=== PATIENT | female | born 1940 | race Caucasian/White ===

== ENCOUNTER 2017-03-23 17:01 | Inpatient (IN) | payer MEDICARE, MEDICAID ==
[~2017-03-23] VITALS: Ht 152.4 cm; Wt 69.8 kg
[~2017-03-23 17:01] MED LIST: AMLO5 PO; ATOR40TA49 PO; BP MED; Levothyroxine Sodium PO; METO50TA PO; WARF6 PO; [UNRECOGNIZED DRUG - OTHER] XX
[2017-03-23 17:10] VITALS: PULSE 113; RESP 16; TEMP 98.7; O2SAT 98
--- NOTE | 2017-03-23 17:15 | PD ---
HPI Chief Complaint: Abnormal Results Time Seen by Provider: 17:15 Travel History International Travel<30 days: No Contact w/Intl Traveler<30days: No Traveled to known affect area: No History of Present Illness HPI 76-year-old female with history of hypertension, CAD, CVA, hypothyroidism, presents to the emergency department from [facility] for evaluation of altered mental status and a hemoglobin of 5.2 identified on lab work from March. Patient's mentation has been declining over the last 3-4 days per [facility] report from Center staff. The patient is a poor historian. She answers no when asked about pain. Tells me that she "feels fine." In review of the records, it appears that the patient has been seen by Dr. Diallo. She has been having heme positive stools. There has been no report of hematemesis or coffee-ground emesis. There is no report of fever or chills. A review of the patient's paperwork that accompanies her, the patient was on Coumadin at one point and suffered Coumadin toxicity in early February. She was on hospice care as of February 21, 2017. I am unable to determine what hospice per this documentation I am provided however on a paper dated March 05, 2017, the patient has opted to not complete advanced directives. PFSH Past Medical History Cancer: No Cardiovascular Problems: Yes High Cholesterol: Yes Cerebrovascular Accident: Yes Diminished Hearing: No Endocrine: Yes GERD: Yes Genitourinary: No Immune Disorder: No Musculoskeletal: Yes Neurologic: Yes Psychiatric: No Reproductive: No Respiratory: No Thyroid Disease: Yes Menopausal: Yes Social History Alcohol Use: No Tobacco Use: No Substance Use: No Allergies-Medications (Allergen,Severity, Reaction): Coded Allergies: No Known Allergies (Unverified , 08/17/14) Reported Meds & Prescriptions Reported Meds & Active Scripts Active Reported Vitamin D3 (Cholecalciferol) 1,000 Unit Tab 1,000 Units PO DAILY Synthroid (Levothyroxine Sodium) 75 Mcg Tab 75 Mcg PO DAILY Ranitidine (Ranitidine HCl) 300 Mg Tab 300 Mg PO HS Milk of Magnesia Liq (Magnesium Hydroxide) 400 Mg/5 Ml Susp 30 Ml PO DAILY PRN Alum-Mag Hydroxide-Simeth Liq (Mag Hydrox/Aluminum Hyd/Simeth) 360 Ml Oral.susp 30 Ml PO Q4HR PRN Ferrous Sulfate DR (Ferrous Sulfate) 325 Mg Tabdr 325 Mg PO BID Docusate Sodium 100 Mg Cap 100 Mg PO BID Ativan (Lorazepam) 0.5 Mg Tab 0.5 Mg PO Q8H PRN Mapap (Acetaminophen) 325 Mg Tab 650 Mg PO Q4HR PRN Review of Systems ROS Limitations: Altered Mental Status Except as stated in HPI: all other systems reviewed are Neg Physical Exam Exam Limitations: Altered Mental Status Narrative GENERAL: Well-nourished elderly female patient, lying in bed, in no acute distress. Patient is lying on her left side in a position but is able to fully extend her extremities and lie on her back. She follows simple commands. She responds with confusion or simple yes no answers. SKIN: Focused skin assessment warm/dry. HEAD: Atraumatic. Normocephalic. EYES: Pupils equal and round. No scleral icterus. No injection or drainage. ENT: No nasal bleeding or discharge. Mucous membranes pink and moist. NECK: Trachea midline. No JVD. CARDIOVASCULAR: Regular rate and rhythm. No murmur appreciated. RESPIRATORY: No accessory muscle use. Diminished likely due to poor inspiratory effort.. Breath sounds equal bilaterally. GASTROINTESTINAL: Abdomen soft, non-tender, nondistended. No rebound tenderness. No guarding. Hepatic and splenic margins not palpable. RECTAL EXAM: External hemorrhoids. No tenderness to palpation. Stool is black. Hemoccult-positive. MUSCULOSKELETAL: No obvious deformities. No clubbing. No cyanosis. No edema. NEUROLOGICAL: Awake and confused.. No obvious cranial nerve deficits. Motor grossly within normal limits. Clear speech. Data Data Last Documented VS Vital Signs Date Time Temp Pulse Resp B/P Pulse Ox O2 Delivery O2 Flow Rate FiO2 03/23/17 17:39 112 16 123/81 100 03/23/17 17:39 Room Air 03/23/17 17:10 98.7 Orders Complete Blood Count With Diff (03/23/17 17:29) Comprehensive Metabolic Panel (03/23/17 17:29) Prothrombin Time / Inr (Pt) (03/23/17 17:29) Act Partial Throm Time (Ptt) (03/23/17 17:29) Urinalysis - C+S If Indicated (03/23/17 17:29) Abdomen, Kub Only (03/23/17 17:29) Ecg Monitoring (03/23/17 17:29) Iv Access Insert/Monitor (03/23/17 17:29) Oximetry (03/23/17 17:29) Pantoprazole Inj (Protonix Inj) (03/23/17 17:30) Sodium Chlor 0.9% 1000 Ml Inj (Ns 1000 M (03/23/17 17:29) Sodium Chloride 0.9% Flush (Ns Flush) (03/23/17 17:30) Ct Brain W/O Iv Contrast(Rout) (03/23/17 ) Red Blood Cells (Rbc) (03/23/17 18:18) Blood Product Administration .UPON TRANSFUSION (03/23/17 18:18) Sodium Chlor 0.9% 250 Ml Inj (Ns 250 Ml (03/23/17 18:30) Red Blood Cells (Rbc) (03/23/17 14:45) Type And Screen (03/23/17 14:45) Admit Order (Ed Use Only) (03/23/17 19:48) Labs Laboratory Tests Test 03/23/17 03/23/17 03/23/17 14:45 17:30 18:18 Blood Type A POSITIVE Antibody Screen NEGATIVE Crossmatch Leukocyte-Reduced Leukocyte-Reduced Red Blood Red Blood Cells Cells Blood Bank Comment White Blood Count 5.1 TH/MM3 Red Blood Count 1.81 MIL/MM3 Hemoglobin 6.0 GM/DL Hematocrit 18.9 % Mean Corpuscular Volume 104.5 FL Mean Corpuscular Hemoglobin 33.0 PG Mean Corpuscular Hemoglobin 31.6 % Concent Red Cell Distribution Width 25.8 % Platelet Count 150 TH/MM3 Mean Platelet Volume 9.7 FL Neutrophils (%) (Auto) 71.4 % Lymphocytes (%) (Auto) 20.5 % Monocytes (%) (Auto) 7.2 % Eosinophils (%) (Auto) 0.1 % Basophils (%) (Auto) 0.8 % Neutrophils # (Auto) 3.6 TH/MM3 Lymphocytes # (Auto) 1.0 TH/MM3 Monocytes # (Auto) 0.4 TH/MM3 Eosinophils # (Auto) 0.0 TH/MM3 Basophils # (Auto) 0.0 TH/MM3 CBC Comment AUTO DIFF Differential Comment AUTO DIFF CONFIRMED Platelet Estimate NORMAL Platelet Morphology Comment NORMAL Tear Drop Cells 1+ Ovalocytes 1+ Prothrombin Time 11.4 SEC Prothromb Time International 1.0 RATIO Ratio Activated Partial 22.6 SEC Thromboplast Time Sodium Level 138 MEQ/L Potassium Level 4.4 MEQ/L Chloride Level 109 MEQ/L Carbon Dioxide Level 19.2 MEQ/L Anion Gap 10 MEQ/L Blood Urea Nitrogen 43 MG/DL Creatinine 3.44 MG/DL Estimat Glomerular Filtration 13 ML/MIN Rate Random Glucose 106 MG/DL Calcium Level 8.5 MG/DL Total Bilirubin 0.3 MG/DL Aspartate Amino Transf 64 U/L (AST/SGOT) Alanine Aminotransferase 42 U/L (ALT/SGPT) Alkaline Phosphatase 106 U/L Total Protein 6.2 GM/DL Albumin 2.9 GM/DL MDM Medical Decision Making Medical Screen Exam Complete: Yes Emergency Medical Condition: Yes Medical Record Reviewed: Yes Differential Diagnosis Electrolytic abnormality versus UTI versus traumatic anemia versus GI bleed upper versus lower versus sepsis Narrative Course 76-year-old female presents to emergency department for evaluation of low hemoglobin as well as altered mental status. Patient is awake and alert but pleasantly confused. She is unable to answer any details regarding her history but does answer simple yes and no questions. She follows commands. Stool is black tarry and heme positive. Abdominal exam is benign. CBC is without leukocytosis. Hemoglobin is 6.0 with hematocrit of 18.9. Patient is typed and crossed and 2 units of packed red blood cells was ordered. CMP is with a BUN of 43 and creatinine of 3.4 for this is acute elevation compared to our recent lab work however this is from 2013 that I can compare it to. INR is 1.0. CT imaging of the brain was ordered however at this time it was unable to be done due to patient's not holding still for exam. I am informed that the patient was found on the floor. She went in to assess and move her back to the bed with nursing staff. IV was removed by patient. She appears to have no obvious trauma. She answers no to pain. She does not react painfully as I palpate over her extremities and trunk. I received a call to Dr. Montes De Oca. I invited him the limited history regarding the patient that I had. Patient will be admitted to the [facility] under his name. Diagnosis Primary Impression: Altered mental status, unspecified Additional Impressions: Anemia Qualified Code: D64.9 - Anemia, unspecified type GI bleed Qualified Code: K92.2 - Gastrointestinal hemorrhage, unspecified gastrointestinal hemorrhage type ARF (acute renal failure) Qualified Code: N17.9 - Acute renal failure, unspecified acute renal failure type Admitting Information Admitting Physician Requests: Admit Condition: Stable Adalgisa Baca Mar 23, 2017 17:15
[2017-03-23] MEDS ORDERED: SODIUM CHLOR 0.9% 1000 ML INJ 1,000 ML IV SCH (17:29)
[2017-03-23] MEDS ORDERED: SODIUM CHLORIDE 0.9% FLUSH 10 ML FLUSH IVF PRN (17:30)
[2017-03-23] MEDS ORDERED: PANTOPRAZOLE SODIUM 40 MG VIAL IVP ONE (17:30)
[2017-03-23 17:39] VITALS: BP 123/81; PULSE 112; RESP 16; O2SAT 100
[2017-03-23 17:59] LABS: AUTOMATED NEUTROPHIL # 3.6 TH/MM3 (1.8-7.7); BASOPHIL % 0.8 % (0.0-2.0); EOSINOPHIL % 0.1 % (0.0-4.0); LYMPH % 20.5 % (9.0-44.0); MEAN CELL VOLUME 104.5 FL (80.0-100.0); MEAN CORPUSCULAR HGB CONC 31.6 % (32.0-36.0); MONO % 7.2 % (0.0-8.0); NEUT % 71.4 % (16.0-70.0); PLATELET COUNT 150 TH/MM3 (150-450); RED BLOOD COUNT 1.81 MIL/MM3 (4.00-5.30); RED CELL DISTRIBUTION WIDTH 25.8 % (11.6-17.2); WHITE BLOOD COUNT 5.1 TH/MM3 (4.0-11.0)
[2017-03-23 18:03] LABS: HEMO FLAGS AUTO DIFF
--- NOTE | 2017-03-23 18:04 | RADRPT ---
EXAM DATE/TIME: 03/23/2017 17:52 [facility] COMPARISON: No previous studies available for comparison. INDICATIONS : Anemia. MEDICAL HISTORY : Stroke. SURGICAL HISTORY : None. ENCOUNTER: Initial ACUITY: 1 day PAIN SCORE: 8/10 LOCATION: Bilateral upper quadrant FINDINGS: Supine view of the abdomen was performed. The abdominal bowel gas pattern is normal. No abnormal ma sses, calcifications, or organomegaly is seen. Visualized osseous structures are osteopenic. There are degenerative changes noted of the lumbar spin e. Previous kyphoplasty of T12. There is moderate severity age-indeterminate compression fracture of L4. CONCLUSION: 1. Benign-appearing abdomen. 2. Osteopenia of the visualized osseous structures. Age-indeterminate compression fracture of L4. Pre vious kyphoplasty of T12. Rayshawn Barksdale MD on March 23, 2017 at 18:01 Board Certified Radiologist. This report was verified electronically.
[2017-03-23 18:11] LABS: HEMATOCRIT 18.9 % (35.0-46.0)
[2017-03-23 18:15] LABS: ALT (GPT) 42 U/L (10-53); ANION GAP 10 MEQ/L (5-15); AST (GOT) 64 U/L (15-37); BICARBONATE 19.2 MEQ/L (21.0-32.0); BLOOD UREA NITROGEN 43 MG/DL (7-18); CHLORIDE 109 MEQ/L (98-107); GLOMERULAR FILTRATION RATE 13 ML/MIN (>89); POTASSIUM 4.4 MEQ/L (3.5-5.1); SODIUM (NA) 138 MEQ/L (136-145)
[2017-03-23 18:17] LABS: ALKALINE PHOSPHATASE 106 U/L (45-117); TOTAL BILIRUBIN ADULT 0.3 MG/DL (0.2-1.0)
[2017-03-23 18:18] LABS: APTT (PATIENT) 22.6 SEC (24.3-30.1); PROTHROMBIN TIME - PATIENT 11.4 SEC (9.8-11.6)
[2017-03-23] MEDS ORDERED: SODIUM CHLOR 0.9% 250 ML INJ 250 ML IV ONE (18:30)
[2017-03-23 18:52] LABS: OVALOCYTES 1+ (NORMAL); PLATELET ESTIMATE SMEAR NORMAL (NORMAL); PLATELET MORPHOLOGY NORMAL (NORMAL); SCAN/DIFF AUTO DIFF CONFIRMED; TEARDROP RBCS 1+ (NORMAL)
[2017-03-23] MEDS ORDERED: VITA100018 PO (19:18)
[2017-03-23] MEDS ORDERED: ALUMSUS3 PO (19:18)
[2017-03-23] MEDS ORDERED: LORA-392 PO (19:18)
[2017-03-23] MEDS ORDERED: FERR325T2 PO (19:18)
[2017-03-23] MEDS ORDERED: RANI300T PO (19:18)
[2017-03-23] MEDS ORDERED: LEVO.075 PO (19:18)
[2017-03-23] MEDS ORDERED: MAPA325T PO (19:18)
[2017-03-23] MEDS ORDERED: DOCU100C PO (19:18)
[2017-03-23] MEDS ORDERED: MILKSUS PO (19:18)
[2017-03-23] MEDS ORDERED: NALOXONE HCL 0.4 MG/ML AMP IV PRN (20:00)
[2017-03-23] MEDS ORDERED: ACETAMINOPHEN 325 MG TAB PO PRN (20:00)
[2017-03-23] MEDS ORDERED: MAGNESIUM HYDROXIDE SUSP 30 ML CUP PO PRN (20:00)
[2017-03-23] MEDS ORDERED: ONDANSETRON HCL 4 MG/2 ML VIAL IVP PRN (20:00)
[2017-03-23] MEDS: FERROUS SULFATE 325 MG (65 MG ELEMENTAL IRON) TAB PO SCH (20:15)
[2017-03-23 20:18] VITALS: BP 118/58; PULSE 112; RESP 20; O2SAT 96
--- NOTE | 2017-03-23 20:49 | RADRPT ---
EXAM DATE/TIME: 03/23/2017 20:06 [facility] COMPARISON: No previous studies available for comparison. INDICATIONS : Fall and altered mental status. MEDICAL HISTORY : unobtainable SURGICAL HISTORY : unobtainable ENCOUNTER: Initial ACUITY: 1 day PAIN SCORE: Non-responsive. LOCATION: Bilateral upper chest FINDINGS: A single view of the chest demonstrates the lungs to be symmetrically aerated without evidence of mas s, infiltrate or effusion. The cardiomediastinal contours are unremarkable. Osseous structures are intact. CONCLUSION: No evidence of acute cardiopulmonary disease. Rayshawn Barksdale MD on March 23, 2017 at 20:46 Board Certified Radiologist. This report was verified electronically.
[2017-03-23] MEDS: DOCUSATE SODIUM 100 MG CAP PO SCH (21:00)
[2017-03-23] MEDS: SODIUM CHLORIDE 0.9% FLUSH 10 ML FLUSH IV FLUSH SCH (21:00)
[2017-03-23 21:30] LABS: FREE T4 1.56 NG/DL (0.76-1.46)
[2017-03-23 22:06] VITALS: BP 101/56; PULSE 76; RESP 17; TEMP 97.4; O2SAT 96
[2017-03-23 22:50] VITALS: PULSE 108
[2017-03-23] MEDS: LORazepam 0.5 MG TAB PO PRN (23:26)
[2017-03-24] VITALS: BP 128/65; PULSE 100; RESP 17; TEMP 96.9; O2SAT 95
[2017-03-24 05:00] VITALS: BP 120/60; PULSE 92; RESP 16; TEMP 97.8; O2SAT 94
[2017-03-24] MEDS: FERROUS SULFATE 325 MG (65 MG ELEMENTAL IRON) TAB PO SCH ×2 (05:25→16:06)
[2017-03-24] MEDS: LEVOTHYROXINE SODIUM 75 MCG TAB PO SCH (05:25)
[2017-03-24 08:00] VITALS: BP 144/66; PULSE 105; RESP 17; TEMP 97.3; O2SAT 95
[2017-03-24] MEDS: LORazepam 0.5 MG TAB PO PRN (08:52)
[2017-03-24] MEDS: DOCUSATE SODIUM 100 MG CAP PO SCH ×2 (08:52→20:30)
[2017-03-24] MEDS: PANTOPRAZOLE SODIUM 40 MG VIAL IV PUSH SCH (08:52)
[2017-03-24] MEDS: SODIUM CHLORIDE 0.9% FLUSH 10 ML FLUSH IV FLUSH SCH ×2 (08:53→20:30)
--- NOTE | 2017-03-24 10:29 | HHI.HP ---
HPI Service [facility] Hospitalists Primary Care Physician Unknown Admission Diagnosis AMS; GI BLEED; ANEMIA Chief Complaint: AMS Travel History International Travel<30 Days: No Contact w/Intl Traveler <30 Da: No Traveled to Known Affected Are: No History of Present Illness Ms. Ariza is a 76 y/o WF with hypertension, hx of CVA, and hypothyroidism who presented to the ED at [facility] on 03/23/17 from her local [facility], for evaluation of altered mental status and anemia. Pt had outpt labs on 03/20/17 which noted a hemoglobin of 5.2. The pt is unable to provide any meaningful information at the time of examination so the history was taken from the ED notes and outpt records. Per the ED notes, the patient's mentation has been declining over the last 3-4 days per the Center staff. In review of the records , the pt was recently admitted to [facility] from 02/20/17 to 03/02/17 for AMS, acute renal failure, Coumadin toxicity and anemia. She was reportedly having hematuria at that time which resolved once her INR improved. She was found to have an E. coli UTI which was treated with Rocephin and then oral Cipro. Pt was initiated on FeSO4 for her anemia. It was also noted that the pts mentation improved with correction of her acute renal failure. The pt was also reportedly on Hospice for a few days prior to that admission but this was revoked at the time of that admission to . On 03/20/17 the patient has been seen by Dr. Diallo and according to the outpt notes the pt had been having intermittent N/ V but no reported hematemesis or coffee-ground emesis. Pt was also noted to be Hemoccult positive. She was planned to undergo evaluation with EGD/colonoscopy and was ordered for a blood transfusion. Per nursing staff the pt has had smears of black tarry stool in her diapers every time she gets changed but no obvious red blood noted. I do not had a record of her discharge medications from that recent hospitalization but it appears that she has been taken off the Coumadin as this was not on her admission Med Rec and not listed in outpt medication list in [facility] EHR. Pts not clear if the pt has baseline dementia or not based on outpt records. 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 Past Surgical History T12 Kyphoplasty Reported Medications -Vitamin D3 1,000 Units PO DAILY -Synthroid 75 Mcg PO DAILY ?88 Mcg DAILY -Ranitidine 300 Mg PO HS -Milk of Magnesia Liq 30 Ml PO DAILY PRN -Alum-Mag Hydroxide-Simeth Liq 30 Ml PO Q4HR PRN -Ferrous Sulfate DR 325 Mg PO BID -Docusate Sodium 100 Mg PO BID -Acetaminophen 650 Mg PO Q4HR PRN ?Norvasc 5 Mg PO DAILY ?Atorvastatin 40 Mg PO HS ?Metoprolol 50 Mg PO HS ?Omeprazole 20 Mg PO DAILY ??Ativan 0.5 Mg PO Q8H PRN Allergies: Coded Allergies: No Known Allergies (Unverified , 08/17/14) Family History Father with hx of CVA Mother with hx of cancer Social History No reported alcohol, tobacco or illicit drug use Pt is a Physical Exam Vital Signs Vital Signs Date Time Temp Pulse Resp B/P Pulse Ox O2 Delivery O2 Flow Rate FiO2 03/24/17 08:00 97.3 105 17 144/66 95 03/24/17 05:00 97.8 92 16 120/60 94 03/24/17 00:00 96.9 100 17 128/65 95 03/23/17 22:50 108 03/23/17 22:06 97.4 76 17 101/56 96 03/23/17 20:18 112 20 118/58 96 Room Air 03/23/17 17:39 112 16 123/81 100 03/23/17 17:39 100 Room Air 03/23/17 17:10 98.7 113 16 98 Physical Exam GENERAL: This is a well-nourished, well-developed patient, in no apparent distress. HEENT: Atraumatic. Normocephalic. No temporal or scalp tenderness. No scleral icterus. Airway patent. NECK: Trachea midline, supple, nontender. CARDIO: Regular. RESP: CTA bilaterally. No wheezes, rales, or rhonchi. ABD: +BS, soft, non-tender, nondistended. EXT: Extremities without clubbing, cyanosis, or edema. NEURO: Awake and confused, follows some commands. Cannot answer questions appropriately. Normal speech. Laboratory Laboratory Tests Test 03/23/17 03/23/17 03/23/17 14:45 17:30 18:18 Blood Type A POSITIVE Antibody Screen NEGATIVE Crossmatch Leukocyte-Reduced Leukocyte-Reduced Red Blood Red Blood Cells Cells Blood Bank Comment White Blood Count 5.1 Red Blood Count 1.81 Hemoglobin 6.0 Hematocrit 18.9 Mean Corpuscular Volume 104.5 Mean Corpuscular Hemoglobin 33.0 Mean Corpuscular Hemoglobin 31.6 Concent Red Cell Distribution Width 25.8 Platelet Count 150 Mean Platelet Volume 9.7 Neutrophils (%) (Auto) 71.4 Lymphocytes (%) (Auto) 20.5 Monocytes (%) (Auto) 7.2 Eosinophils (%) (Auto) 0.1 Basophils (%) (Auto) 0.8 Neutrophils # (Auto) 3.6 Lymphocytes # (Auto) 1.0 Monocytes # (Auto) 0.4 Eosinophils # (Auto) 0.0 Basophils # (Auto) 0.0 CBC Comment AUTO DIFF Differential Comment AUTO DIFF CONFIRMED Platelet Estimate NORMAL Platelet Morphology Comment NORMAL Tear Drop Cells 1+ Ovalocytes 1+ Prothrombin Time 11.4 Prothromb Time International 1.0 Ratio Activated Partial 22.6 Thromboplast Time Sodium Level 138 Potassium Level 4.4 Chloride Level 109 Carbon Dioxide Level 19.2 Anion Gap 10 Blood Urea Nitrogen 43 Creatinine 3.44 Estimat Glomerular Filtration 13 Rate Random Glucose 106 Calcium Level 8.5 Total Bilirubin 0.3 Aspartate Amino Transf 64 (AST/SGOT) Alanine Aminotransferase 42 (ALT/SGPT) Alkaline Phosphatase 106 Total Protein 6.2 Albumin 2.9 Vitamin B12 Level 734 Folate 7.5 Free Thyroxine 1.56 Thyroid Stimulating Hormone 10.300 3rd Gen Result Diagram: 03/23/17 1730 03/23/17 173 Imaging Last Impressions Chest X-Ray 03/23/17 1948 Signed Impressions: Service Date/Time: Thursday, March 23, 2017 20:06 - CONCLUSION: No evidence of acute cardiopulmonary disease. Rayshawn Barksdale MD Abdomen X-Ray 03/23/179 Signed Impressions: Service Date/Time: Thursday, March 23, 2017 17:52 - CONCLUSION: 1. Benign-appearing abdomen. 2. Osteopenia of the visualized osseous structures. Age-indeterminate compression fracture of L4. Previous kyphoplasty of T12. Rayshawn Barksdale MD Septic Shock Reassessment Heart: Regular rate and rhythm Lungs: Clear Skin: Warm Assessment and Plan Problem List: (1) Altered mental status, unspecified Status: Acute Plan: - Pt is a 76 y/o with hypertension, hx of CVA, and hypothyroidism who presented to the ED at [facility] on 03/23/17 for evaluation of altered mental status and anemia. - Pt had outpt labs on 03/20/17 which noted a hemoglobin of 5.2. Pt also noted to be in ARF with Cr 3.44. - Outpt records from 08/2016 pt was noted to have Cr. 1.36 and Hgb 14. - In review of the records, the pt was recently admitted to [facility] from to 03/02/17 for AMS, acute renal failure, Coumadin toxicity and anemia. She was reportedly having hematuria at that time which resolved once her INR improved. She was found to have an E. coli UTI which was treated with Rocephin and then oral Cipro. Pt was initiated on FeSO4 for her anemia. It was also noted that the pts mentation improved with correction of her acute renal failure. - On 03/20/17 the patient has been seen by Dr. Diallo and according to the outpt notes the pt had been having intermittent N/V but no reported hematemesis or coffee-ground emesis. Pt was also noted to be Hemoccult positive. She was planned to undergo evaluation with EGD/colonoscopy and was ordered for a blood transfusion. - Pt has been transfused with 2 units PRBCs - GI is consulted for evaluation of anemia and GIB. - It appears that she has been taken off the Coumadin as this was not on her admission Med Rec and not listed in outpt medication list in [facility] EHR. - Pt was given IVF in the ED, we will give another 2 L of NS today - Pts not clear if the pt has baseline dementia or not based on outpt records. - Head CT w/o contrast is ordered for today, unable logan done last night due to pt being uncooperative. - Await repeat BMP for today to assess renal function status. - Supportive care - DVT prophylaxis with SCDs (2) Anemia Status: Acute Plan: - See above. (3) GI bleed Status: Acute Plan: - See above. (4) ARF (acute renal failure) Status: Acute Plan: - See above. (5) Hypertension Status: Chronic Plan: - Currently BP is stable. - Its unclear what her outpt BP medications are - We will need to review this with her PCP office for confirmation since her recent discharge from [place] - Clonidine PRN (6) Hypothyroidism Status: Chronic Plan: - Labs at admission with TSH 10.3 and free T4 1.56 (7) Hyperlipidemia Status: Chronic Plan: - Cont. home meds (8) CVA (cerebral infarction) Status: Chronic Plan: - Pt with hx of right MCA distribution CVA in 2010 s/p TPA - Pt had been on Coumadin previously Assessment and Plan Patient examined. Assessment and plan formulated with Lucille Washington PA-C. I agree with the above. Physician Certification 2 Midnight Certification Type: Admission for Inpatient Services Order for Inpatient Services The services are ordered in accordance with Medicare regulations or non- Medicare payer requirements, as applicable. In the case of services not specified as inpatient-only, they are appropriately provided as inpatient services in accordance with the 2-midnight benchmark. Estimated LOS (days): 3 3 days is the estimated time the patient will need to remain in the hospital, assuming treatment plan goals are met and no additional complications. Post-Hospital Plan: Not yet determined Problem Qualifiers (1) Anemia: Qualified Code: D64.9 - Anemia, unspecified type (2) GI bleed: Qualified Code: K92.2 - Gastrointestinal hemorrhage, unspecified gastrointestinal hemorrhage type (3) ARF (acute renal failure): Qualified Code: N17.9 - Acute renal failure, unspecified acute renal failure type Lucille Washington Mar 24, 2017 10:29 Jered Montes De Oca DO Mar 25, 2017 22:06
[2017-03-24 11:27] LABS: BASOPHIL % 0.7 % (0.0-2.0); HEMATOCRIT 27.8 % (35.0-46.0); HEMO FLAGS DIFF FINAL; LYMPH % 24.5 % (9.0-44.0); LYMPHOCYTE # 1.4 TH/MM3 (1.0-4.8); MEAN CELL VOLUME 89.1 FL (80.0-100.0); MEAN CORPUSCULAR HEMOGLOBIN 29.9 PG (27.0-34.0); MEAN CORPUSCULAR HGB CONC 33.6 % (32.0-36.0); MONO % 6.4 % (0.0-8.0); NEUT % 68.4 % (16.0-70.0); PLATELET COUNT 101 TH/MM3 (150-450); RED BLOOD COUNT 3.12 MIL/MM3 (4.00-5.30); RED CELL DISTRIBUTION WIDTH 21.8 % (11.6-17.2); WHITE BLOOD COUNT 5.9 TH/MM3 (4.0-11.0)
[2017-03-24 11:54] LABS: BICARBONATE 19.2 MEQ/L (21.0-32.0); POTASSIUM 4.3 MEQ/L (3.5-5.1)
[2017-03-24 12:00] VITALS: BP 99/50; PULSE 93; RESP 17; TEMP 96.8; O2SAT 97
--- NOTE | 2017-03-24 12:35 | RADRPT ---
EXAM DATE/TIME: 03/23/2017 21:13 [facility] COMPARISON: MRI BRAIN W & W/O CONTRAST, August 18, 2014, 14:33. CTA CAROTID ARTERIES W 3D RECON, August 18 014, 18:34. INDICATIONS : Altered mental status. RADIATION DOSE: 36.52 CTDIvol (mGy) MEDICAL HISTORY : Stroke. Hypertension. Gastroesophageal reflux disease. SURGICAL HISTORY : None. ENCOUNTER: Initial ACUITY: 1 day PAIN SCALE: 0/10 LOCATION: Bilateral head TECHNIQUE: Multiple contiguous axial images were obtained of the head. Using automated exposure control and adj ustment of the mA and/or kV according to patient size, radiation dose was kept as low as reasonably a chievable to obtain optimal diagnostic quality images. FINDINGS: The exam demonstrates encephalomalacic infarct involving the watershed distribution between the right frontal and parietal cortex. There is no acute intracranial hemorrhage. The ventricles are normal in size and configuration. No mass lesion is identified. The appearance of the posterior fossa is unremarkable. The osseous structures of the skull are intact. CONCLUSION: 1. Old area of infarct in the watershed distribution between the right frontal and parietal cortex. 2. No acute abnormality seen. Osiel Lacy MD on March 24, 2017 at 12:32 Board Certified Radiologist. This report was verified electronically.
[2017-03-24] MEDS: SODIUM CHLOR 0.9% 1000 ML INJ 1,000 ML IV SCH ×2 (12:37→20:31)
--- NOTE | 2017-03-24 15:12 | PD.CONS ---
HPI History of Present Illness This is a 76 year old lady who per EMR has hx CVA, HTN, sent to ER by her [facility] for AMS, anemia. She had hgb 6.6 on admission. She is noncontributory, hx taken from [facility] [place]. She has been having smears of black stool here and at [facility]. She has been more confused than her baseline in the last 3-4 days. She was treated 02/20 - 03/02/17 for coumadin toxicity and anemia and renal failure, as well as a UTI. She is not currently on coumadin. 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 Past Surgical History khyphoplasty (Stephania Marks) Coded Allergies: No Known Allergies (Unverified , 08/17/14) Family History unk Social History unk (Stephania Marks) Review of Systems ROS noncontributory (Stephania Marks) GI Exam Vitals I&O Vital Signs Date Time Temp Pulse Resp B/P Pulse Ox O2 Delivery O2 Flow Rate FiO2 03/24/17 12:00 96.8 93 17 99/50 97 03/24/17 08:00 97.3 105 17 144/66 95 03/24/17 05:00 97.8 92 16 120/60 94 03/24/17 00:00 96.9 100 17 128/65 95 03/23/17 22:50 108 03/23/17 22:06 97.4 76 17 101/56 96 03/23/17 20:18 112 20 118/58 96 Room Air 03/23/17 17:39 112 16 123/81 100 03/23/17 17:39 100 Room Air 03/23/17 17:10 98.7 113 16 98 I/O 03/23/17 03/23/17 03/23/17 03/24/17 03/24/17 03/24/17 07:00 15:00 23:00 07:00 15:00 23:00 Intake Total 120 ml 790 ml 812 ml Output Total 250 ml Balance 120 ml 540 ml 812 ml Intake Oral 120 ml 120 ml 20 ml IV Total 60 ml 97 ml Packed Cells 610 ml 695 ml Output Urine Total 250 ml # Voids 1 3 5 # Bowel Movements 1 1 5 Imaging Last Impressions Chest X-Ray 03/23/17 1948 Signed Impressions: Service Date/Time: Thursday, March 23, 2017 20:06 - CONCLUSION: No evidence of acute cardiopulmonary disease. Rayshawn Barksdale MD Abdomen X-Ray 03/23/17 1729 Signed Impressions: Service Date/Time: Thursday, March 23, 2017 17:52 - CONCLUSION: 1. Benign-appearing abdomen. 2. Osteopenia of the visualized osseous structures. Age-indeterminate compression fracture of L4. Previous kyphoplasty of T12. Rayshawn Barksdale MD Head CT 03/23/17 0000 Signed Impressions: Service Date/Time: Thursday, March 23, 2017 21:13 - CONCLUSION: 1. Old area of infarct in the watershed distribution between the right frontal and parietal cortex. 2. No acute abnormality seen. Osiel Lacy MD Laboratory Test 03/23/17 03/23/17 03/24/17 17:30 18:18 11:09 White Blood Count 5.1 TH/MM3 5.9 TH/MM3 Red Blood Count 1.81 MIL/MM3 3.12 MIL/MM3 Hemoglobin 6.0 GM/DL 9.3 GM/DL Hematocrit 18.9 % 27.8 % Mean Corpuscular Volume 104.5 FL 89.1 FL Mean Corpuscular Hemoglobin 33.0 PG 29.9 PG Mean Corpuscular Hemoglobin 31.6 % 33.6 % Concent Red Cell Distribution Width 25.8 % 21.8 % Platelet Count 150 TH/MM3 101 TH/MM3 Mean Platelet Volume 9.7 FL 8.7 FL Neutrophils (%) (Auto) 71.4 % 68.4 % Lymphocytes (%) (Auto) 20.5 % 24.5 % Monocytes (%) (Auto) 7.2 % 6.4 % Eosinophils (%) (Auto) 0.1 % 0.0 % Basophils (%) (Auto) 0.8 % 0.7 % Neutrophils # (Auto) 3.6 TH/MM3 4.0 TH/MM3 Lymphocytes # (Auto) 1.0 TH/MM3 1.4 TH/MM3 Monocytes # (Auto) 0.4 TH/MM3 0.4 TH/MM3 Eosinophils # (Auto) 0.0 TH/MM3 0.0 TH/MM3 Basophils # (Auto) 0.0 TH/MM3 0.0 TH/MM3 CBC Comment AUTO DIFF DIFF FINAL Differential Comment AUTO DIFF CONFIRMED Platelet Estimate NORMAL Platelet Morphology Comment NORMAL Tear Drop Cells 1+ Ovalocytes 1+ Prothrombin Time 11.4 SEC Prothromb Time International 1.0 RATIO Ratio Activated Partial 22.6 SEC Thromboplast Time Sodium Level 138 MEQ/L 141 MEQ/L Potassium Level 4.4 MEQ/L 4.3 MEQ/L Chloride Level 109 MEQ/L 111 MEQ/L Carbon Dioxide Level 19.2 MEQ/L 19.2 MEQ/L Anion Gap 10 MEQ/L 11 MEQ/L Blood Urea Nitrogen 43 MG/DL 37 MG/DL Creatinine 3.44 MG/DL 3.27 MG/DL Estimat Glomerular Filtration 13 ML/MIN 14 ML/MIN Rate Random Glucose 106 MG/DL 79 MG/DL Calcium Level 8.5 MG/DL 8.0 MG/DL Total Bilirubin 0.3 MG/DL Aspartate Amino Transf 64 U/L (AST/SGOT) Alanine Aminotransferase 42 U/L (ALT/SGPT) Alkaline Phosphatase 106 U/L Total Protein 6.2 GM/DL Albumin 2.9 GM/DL Vitamin B12 Level 734 PG/ML Folate 7.5 NG/ML Free Thyroxine 1.56 NG/DL Thyroid Stimulating Hormone 10.300 uIU/ML 3rd Gen Crossmatch Leukocyte-Reduced Red Blood Cells Blood Bank Comment Ammonia 27 MCMOL/L Physical Examination HEENT: EOMI; normocephalic; atraumatic; no jaundice. CHEST: CTA CARDIAC: RRR ABDOMEN: Soft, nondistended, nontender; no hepatosplenomegaly; bowel sounds are present in all four quadrants. EXTREMITIES: No clubbing, cyanosis, or edema. SKIN: Normal; no rash; no jaundice. IDEA WORKER: confused (Stephania Marks) Assessment and Plan Plan ASSESSMENT - melena - report of recent hemoccult pos result. Melena per RN, EMR. d/w RN, daughter will give consent - anemia - Hgb 6.0 on admission. Currently 9.3. PLAN - EGD tomorrow - NPO after midnight - clears for now - obtain consents - monitor HH - transfuse if needed - further recommendations to follow This pt seen by myself and Dr Manzano and this note is written on his behalf. ( Stephania Marks) Physician Comments Seen and examined, plan as above, further recommendations to follow after EGD. ( Jory Manzano MD) Stephania Marks Mar 24, 2017 15:12 Jory Manzano MD Mar 24, 2017 17:27
[2017-03-24 16:00] VITALS: BP 140/68; PULSE 106; RESP 16; TEMP 98.6; O2SAT 96
[2017-03-24 20:00] VITALS: BP 119/58; PULSE 100; RESP 16; TEMP 96.9; O2SAT 94
--- NOTE | 2017-03-24 21:48 | EKG ---
Date Performed: 03/23/2017 Time Performed: 20:12:11 PTAGE: 76 years EKG: SINUS TACHYCARDIA WITH OCCASIONAL VENTRICULAR PREMATURE COMPLEXES RIGHT BUNDLE BRANCH BLOCK LEFT ANTERIOR FASCICULAR BLOCK Since previous tracing, no significant change noted ABNORMAL ECG PREVIOUS TRACING : 08/17/2014 17.37 DOCTOR: Priscilla Felton Interpretating Date/Time 03/24/2017 21:47:14
[2017-03-24] MEDS ORDERED: METOPROLOL TARTRATE 25 MG TAB PO PRN (22:30)
[2017-03-24] MEDS ORDERED: CHLORHEXIDINE GLUCONATE 2 % 1 PACK (2 CLOTHS) TOPICAL PRN (22:30)
[2017-03-24] MEDS ORDERED: LACTATED RINGER'S 1000 ML IV PRN (22:30)
[2017-03-24] MEDS ORDERED: SODIUM CHLORID 0.9% 500 ML IV PRN (22:30)
[2017-03-24] MEDS ORDERED: POVIDONE IODINE 5% (ANTISEPSIS KIT) 4 APPLICATIONS EACH NARE PRN (22:30)
[2017-03-24] MEDS ORDERED: INSULIN HUMAN REGULAR 1,000 UNITS/10 ML VIAL SQ PRN (22:30)
[2017-03-25] VITALS (8 sets, daily range): BP systolic 128–151; BP diastolic 67–79; PULSE 84–101; RESP 16–20; TEMP 95.8–98.4; O2SAT 94–99
[2017-03-25] MEDS: LEVOTHYROXINE SODIUM 75 MCG TAB PO SCH (05:55)
[2017-03-25] MEDS: FERROUS SULFATE 325 MG (65 MG ELEMENTAL IRON) TAB PO SCH ×2 (05:55→16:05)
[2017-03-25 06:01] LABS: AUTOMATED NEUTROPHIL # 1.9 TH/MM3 (1.8-7.7); BASOPHIL % 0.6 % (0.0-2.0); EOSINOPHIL % 0.5 % (0.0-4.0); HEMATOCRIT 27.1 % (35.0-46.0); LYMPH % 39.3 % (9.0-44.0); LYMPHOCYTE # 1.5 TH/MM3 (1.0-4.8); MEAN CELL VOLUME 90.6 FL (80.0-100.0); MEAN CORPUSCULAR HEMOGLOBIN 29.5 PG (27.0-34.0); MEAN CORPUSCULAR HGB CONC 32.6 % (32.0-36.0); NEUT % 49.6 % (16.0-70.0); PLATELET COUNT 80 TH/MM3 (150-450); RED BLOOD COUNT 2.99 MIL/MM3 (4.00-5.30); RED CELL DISTRIBUTION WIDTH 24.7 % (11.6-17.2); WHITE BLOOD COUNT 3.9 TH/MM3 (4.0-11.0)
[2017-03-25 06:03] LABS: HEMO FLAGS AUTO DIFF
[2017-03-25 06:21] LABS: BICARBONATE 19.4 MEQ/L (21.0-32.0); POTASSIUM 3.5 MEQ/L (3.5-5.1)
[2017-03-25 07:01] LABS: PLATELET ESTIMATE SMEAR LOW (NORMAL); PLATELET MORPHOLOGY NORMAL (NORMAL); SCAN/DIFF AUTO DIFF CONFIRMED
[2017-03-25] MEDS: SODIUM CHLORIDE 0.9% FLUSH 10 ML FLUSH IV FLUSH SCH ×2 (08:38→22:21)
[2017-03-25] MEDS: DOCUSATE SODIUM 100 MG CAP PO SCH ×2 (08:38→22:21)
[2017-03-25] MEDS: PANTOPRAZOLE SODIUM 40 MG VIAL IV PUSH SCH (08:38)
[2017-03-25] MEDS ORDERED: BISACODYL EC 5 MG TABEC PO ONE (11:15)
--- NOTE | 2017-03-25 14:06 | HHI.PR ---
Subjective Remarks Pt is more alert and oriented today Pt is seen after EGD which noted gastritis. She has been afebrile She denies any abd pain. Pt tolerating clear liquid diet. Objective Vitals Vital Signs Date Time Temp Pulse Resp B/P Pulse Ox O2 Delivery O2 Flow Rate FiO2 03/25/17 12:00 96.1 99 20 130/78 99 03/25/17 11:45 89 18 128/68 100 03/25/17 11:30 95 18 104/65 98 03/25/17 11:14 98.4 80 18 99/65 98 03/25/17 09:29 97.9 87 16 140/72 98 03/25/17 08:00 95.8 87 16 140/72 98 03/25/17 05:01 96.4 84 17 138/69 95 03/25/17 00:00 96.2 94 17 151/67 94 03/24/17 20:00 96.9 100 16 119/58 94 03/24/17 20:00 100 03/24/17 16:00 98.6 106 16 140/68 96 03/24/17 03/24/17 03/25/17 14:59 22:59 06:59 Intake Total 812 ml 280 ml 1642 ml Balance 812 ml 280 ml 1642 ml Intake Oral 20 ml 280 ml 0 ml IV Total 97 ml 1642 ml Packed Cells 695 ml # Voids 5 5 4 # Bowel Movements 5 5 4 Result Diagram: 03/25/17 0528 03/25/17 0528 Other Results Laboratory Tests Test 03/23/17 03/23/17 03/23/17 03/24/17 14:45 17:30 18:18 11:09 Blood Type A POSITIVE Antibody Screen NEGATIVE Crossmatch Leukocyte-Reduced Leukocyte-Reduced Red Blood Red Blood Cells Cells Blood Bank Comment White Blood Count 5.1 TH/MM3 5.9 TH/MM3 Red Blood Count 1.81 MIL/MM3 3.12 MIL/MM3 Hemoglobin 6.0 GM/DL 9.3 GM/DL Hematocrit 18.9 % 27.8 % Mean Corpuscular Volume 104.5 FL 89.1 FL Mean Corpuscular Hemoglobin 33.0 PG 29.9 PG Mean Corpuscular Hemoglobin 31.6 % 33.6 % Concent Red Cell Distribution Width 25.8 % 21.8 % Platelet Count 150 TH/MM3 101 TH/MM3 Mean Platelet Volume 9.7 FL 8.7 FL Neutrophils (%) (Auto) 71.4 % 68.4 % Lymphocytes (%) (Auto) 20.5 % 24.5 % Monocytes (%) (Auto) 7.2 % 6.4 % Eosinophils (%) (Auto) 0.1 % 0.0 % Basophils (%) (Auto) 0.8 % 0.7 % Neutrophils # (Auto) 3.6 TH/MM3 4.0 TH/MM3 Lymphocytes # (Auto) 1.0 TH/MM3 1.4 TH/MM3 Monocytes # (Auto) 0.4 TH/MM3 0.4 TH/MM3 Eosinophils # (Auto) 0.0 TH/MM3 0.0 TH/MM3 Basophils # (Auto) 0.0 TH/MM3 0.0 TH/MM3 CBC Comment AUTO DIFF DIFF FINAL Differential Comment AUTO DIFF CONFIRMED Platelet Estimate NORMAL Platelet Morphology Comment NORMAL Tear Drop Cells 1+ Ovalocytes 1+ Prothrombin Time 11.4 SEC Prothromb Time International 1.0 RATIO Ratio Activated Partial 22.6 SEC Thromboplast Time Sodium Level 138 MEQ/L 141 MEQ/L Potassium Level 4.4 MEQ/L 4.3 MEQ/L Chloride Level 109 MEQ/L 111 MEQ/L Carbon Dioxide Level 19.2 MEQ/L 19.2 MEQ/L Anion Gap 10 MEQ/L 11 MEQ/L Blood Urea Nitrogen 43 MG/DL 37 MG/DL Creatinine 3.44 MG/DL 3.27 MG/DL Estimat Glomerular Filtration 13 ML/MIN 14 ML/MIN Rate Random Glucose 106 MG/DL 79 MG/DL Calcium Level 8.5 MG/DL 8.0 MG/DL Total Bilirubin 0.3 MG/DL Aspartate Amino Transf 64 U/L (AST/SGOT) Alanine Aminotransferase 42 U/L (ALT/SGPT) Alkaline Phosphatase 106 U/L Total Protein 6.2 GM/DL Albumin 2.9 GM/DL Vitamin B12 Level 734 PG/ML Folate 7.5 NG/ML Free Thyroxine 1.56 NG/DL Thyroid Stimulating Hormone 10.300 uIU/ML 3rd Gen Ammonia 27 MCMOL/L Test 03/25/17 05:28 White Blood Count 3.9 TH/MM3 Red Blood Count 2.99 MIL/MM3 Hemoglobin 8.8 GM/DL Hematocrit 27.1 % Mean Corpuscular Volume 90.6 FL Mean Corpuscular Hemoglobin 29.5 PG Mean Corpuscular Hemoglobin 32.6 % Concent Red Cell Distribution Width 24.7 % Platelet Count 80 TH/MM3 Mean Platelet Volume 9.0 FL Neutrophils (%) (Auto) 49.6 % Lymphocytes (%) (Auto) 39.3 % Monocytes (%) (Auto) 10.0 % Eosinophils (%) (Auto) 0.5 % Basophils (%) (Auto) 0.6 % Neutrophils # (Auto) 1.9 TH/MM3 Lymphocytes # (Auto) 1.5 TH/MM3 Monocytes # (Auto) 0.4 TH/MM3 Eosinophils # (Auto) 0.0 TH/MM3 Basophils # (Auto) 0.0 TH/MM3 CBC Comment AUTO DIFF Differential Comment AUTO DIFF CONFIRMED Platelet Estimate LOW Platelet Morphology Comment NORMAL Sodium Level 147 MEQ/L Potassium Level 3.5 MEQ/L Chloride Level 116 MEQ/L Carbon Dioxide Level 19.4 MEQ/L Anion Gap 12 MEQ/L Blood Urea Nitrogen 30 MG/DL Creatinine 2.72 MG/DL Estimat Glomerular Filtration 17 ML/MIN Rate Random Glucose 70 MG/DL Calcium Level 7.6 MG/DL Magnesium Level 2.0 MG/DL Imaging Last Impressions Chest X-Ray 03/23/17 1948 Signed Impressions: Service Date/Time: Thursday, March 23, 2017 20:06 - CONCLUSION: No evidence of acute cardiopulmonary disease. Rayshawn Barksdale MD Abdomen X-Ray 03/23/17 1729 Signed Impressions: Service Date/Time: Thursday, March 23, 2017 17:52 - CONCLUSION: 1. Benign-appearing abdomen. 2. Osteopenia of the visualized osseous structures. Age-indeterminate compression fracture of L4. Previous kyphoplasty of T12. Rayshawn Barksdale MD Head CT 03/23/17 0000 Signed Impressions: Service Date/Time: Thursday, March 23, 2017 21:13 - CONCLUSION: 1. Old area of infarct in the watershed distribution between the right frontal and parietal cortex. 2. No acute abnormality seen. Osiel Lacy MD Objective Remarks General: NAD, Awake and alert, oriented to self and place Chest: CTA Cardiac: Regular Abd: +BS, soft ND/NT Ext: No edema A/P Problem List: (1) Altered mental status, unspecified Status: Acute Plan: - Pt is a 76 y/o with hypertension, hx of CVA, and hypothyroidism who presented to the ED at [facility] on 03/23/17 for evaluation of altered mental status and anemia. - Pt had outpt labs on 03/20/17 which noted a hemoglobin of 5.2. Pt also noted to be in ARF with Cr 3.44. - Outpt records from 08/2016 pt was noted to have Cr. 1.36 and Hgb 14. - In review of the records, the pt was recently admitted to [facility] from to 03/02/17 for AMS, acute renal failure, Coumadin toxicity and anemia. She was reportedly having hematuria at that time which resolved once her INR improved. She was found to have an E. coli UTI which was treated with Rocephin and then oral Cipro. Pt was initiated on FeSO4 for her anemia. It was also noted that the pts mentation improved with correction of her acute renal failure. - On 03/20/17 the patient has been seen by Dr. Diallo and according to the outpt notes the pt had been having intermittent N/V but no reported hematemesis or coffee-ground emesis. Pt was also noted to be Hemoccult positive. She was planned to undergo evaluation with EGD/colonoscopy and was ordered for a blood transfusion. - It appears that she has been taken off the Coumadin as this was not on her admission Med Rec and not listed in outpt medication list in [facility] EHR. - Pt has been transfused with 2 units PRBCs with improvement in H/H to 9.3/27.8 on 03/24/17. Repeat labs today with a decrease in her H/H to 8.8/27.1 - GI is consulted for evaluation of anemia and GIB. - Pt underwent evaluation with EGD on 03/25/17 which noted gastritis - Pt is planned for colonoscopy tomorrow. - Pt was given IVF in the ED, and was given another 2 L of NS on 03/24 with improvement in her mentation and her Cr to 2.72 today. We will give some more fluids today as she will be prepping for the colonoscopy today - Pts not clear if the pt has baseline dementia or not based on outpt records. - Head CT w/o contrast (03/24/17) --> Old area of infarct in the watershed distribution between the right frontal and parietal cortex. No acute abnormality seen. - Repeat BMP for today to assess renal function status. - Supportive care - DVT prophylaxis with SCDs (2) Anemia Status: Acute Plan: - See above. (3) GI bleed Status: Acute Plan: - See above. (4) ARF (acute renal failure) Status: Acute Plan: - See above. (5) Hypertension Status: Chronic Plan: - Currently BP is stable. - Its unclear what her outpt BP medications are - We will need to review this with her PCP office for confirmation since her recent discharge from [place] - Clonidine PRN (6) Hypothyroidism Status: Chronic Plan: - Labs at admission with TSH 10.3 and free T4 1.56 - Home dose of Synthroid 75mcg was resumed at admission - Recheck TSH tomorrow to reassess (7) Hyperlipidemia Status: Chronic Plan: - Cont. home meds (8) CVA (cerebral infarction) Status: Chronic Plan: - Pt with hx of right MCA distribution CVA in 2010 s/p TPA - Pt had been on Coumadin previously Assessment and Plan Patient examined. Assessment and plan formulated with Lucille Washington PA-C. I agree with the above. Pt more alert and interactive today. Hg improved following transfusion 6.0 (6/6) & 8.8 (6/7) Creatinine improving. Colonoscopy tomorrow. Problem Qualifiers (1) Anemia: Qualified Code: D64.9 - Anemia, unspecified type (2) GI bleed: Qualified Code: K92.2 - Gastrointestinal hemorrhage, unspecified gastrointestinal hemorrhage type (3) ARF (acute renal failure): Qualified Code: N17.9 - Acute renal failure, unspecified acute renal failure type Lcuille Washington Mar 25, 2017 14:06 Jered Montes De Oca DO Mar 25, 2017 22:08
[2017-03-25 14:35] LABS: RAPID PLASMA REAGIN SCREEN NON-REACTIVE (NON-REACTVE)
[2017-03-25] MEDS ORDERED: PEG (High)/E-LYTE SOLN 4000 ML BTL PO ONE (16:00)
[2017-03-25] MEDS: 1/2 NS + KCL 20 MEQ INJ 1,000 ML IV SCH (16:05)
[2017-03-25] MEDS ORDERED: PROPOFOL 200 MG/20 ML AMP IV ONE (17:51)
[2017-03-26] VITALS (9 sets, daily range): BP systolic 123–158; BP diastolic 60–81; PULSE 88–100; RESP 17–27; TEMP 96.2–98.3; O2SAT 95–100
[2017-03-26] MEDS: 1/2 NS + KCL 20 MEQ INJ 1,000 ML IV SCH (03:08)
[2017-03-26 05:12] LABS: AUTOMATED NEUTROPHIL # 1.2 TH/MM3 (1.8-7.7); BASOPHIL % 0.5 % (0.0-2.0); HEMATOCRIT 26.1 % (35.0-46.0); LYMPH % 43.7 % (9.0-44.0); LYMPHOCYTE # 1.1 TH/MM3 (1.0-4.8); MEAN CELL VOLUME 90.1 FL (80.0-100.0); MEAN CORPUSCULAR HEMOGLOBIN 29.9 PG (27.0-34.0); MEAN CORPUSCULAR HGB CONC 33.2 % (32.0-36.0); MONO % 9.6 % (0.0-8.0); NEUT % 45.2 % (16.0-70.0); PLATELET COUNT 70 TH/MM3 (150-450); RED CELL DISTRIBUTION WIDTH 24.6 % (11.6-17.2); WHITE BLOOD COUNT 2.6 TH/MM3 (4.0-11.0)
[2017-03-26 05:32] LABS: HEMO FLAGS AUTO DIFF
[2017-03-26 05:42] LABS: BICARBONATE 15.9 MEQ/L (21.0-32.0); MAGNESIUM 1.7 MG/DL (1.5-2.5); POTASSIUM 3.3 MEQ/L (3.5-5.1)
[2017-03-26 05:55] LABS: CALCIUM-PROTEIN CORRECTED 8.6 MG/DL (8.5-10.1)
[2017-03-26] MEDS: LEVOTHYROXINE SODIUM 75 MCG TAB PO SCH (06:39)
[2017-03-26] MEDS: FERROUS SULFATE 325 MG (65 MG ELEMENTAL IRON) TAB PO SCH ×2 (06:39→14:31)
[2017-03-26 07:35] LABS: BANDS 2 % (0-6); CORRECTED NUCLEATED RBC 1 /100 WBC (0-0); METAMYELOCYTES 1 % (0-1); MYELOCYTES 1 % (0-0); NEUTROPHIL # MANUAL DIFF 1.8 TH/MM3 (1.8-7.7); POLYS (SEG NEUTROPHILS) 67 % (16-70); WBC DIFF SAMPLE 100
[2017-03-26 07:36] LABS: ACANTHOCYTES OCC (NORMAL); OVALOCYTES 1+ (NORMAL); PLATELET ESTIMATE SMEAR LOW (NORMAL); PLATELET MORPHOLOGY NORMAL (NORMAL); SCAN/DIFF FINAL DIFF MANUAL
[2017-03-26] MEDS: DOCUSATE SODIUM 100 MG CAP PO SCH ×2 (08:31→21:00)
[2017-03-26] MEDS: SODIUM CHLORIDE 0.9% FLUSH 10 ML FLUSH IV FLUSH SCH ×2 (08:31→21:00)
[2017-03-26] MEDS: PANTOPRAZOLE SODIUM 40 MG VIAL IV PUSH SCH (08:31)
[2017-03-26] MEDS: LORazepam 0.5 MG TAB PO PRN (10:59)
[2017-03-26] MEDS ORDERED: POTASSIUM CHLORIDE 10 MEQ CONTROLLED RELEASE TAB PO ONE (13:30)
--- NOTE | 2017-03-26 13:56 | HHI.PR ---
Subjective Remarks Pt did not drink the prep for the colonoscopy last night. She is very anxious today Denies any abd pain Objective Vitals Vital Signs Date Time Temp Pulse Resp B/P Pulse Ox O2 Delivery O2 Flow Rate FiO2 03/26/17 12:00 96.2 92 17 123/69 96 03/26/17 08:00 98.3 90 17 133/70 98 03/26/17 04:00 96.5 90 20 135/65 95 03/26/17 00:00 97.1 88 20 128/60 95 03/25/17 20:00 96.4 91 20 128/67 98 03/25/17 15:00 98.4 101 17 130/79 94 03/25/17 03/25/17 03/26/17 15:00 23:00 07:00 Intake Total 1132 ml 746 ml 0 ml Output Total 2 ml Balance 1130 ml 746 ml 0 ml Intake Oral 240 ml 240 ml 0 ml IV Total 892 ml 506 ml Output Urine Total 2 ml # Voids 2 4 # Bowel Movements 1 4 9 Result Diagram: 03/26/17 0446 03/26/17 0446 Other Results Laboratory Tests Test 03/25/17 03/26/17 05:28 04:46 White Blood Count 3.9 TH/MM3 2.6 TH/MM3 Red Blood Count 2.99 MIL/MM3 2.90 MIL/MM3 Hemoglobin 8.8 GM/DL 8.7 GM/DL Hematocrit 27.1 % 26.1 % Mean Corpuscular Volume 90.6 FL 90.1 FL Mean Corpuscular Hemoglobin 29.5 PG 29.9 PG Mean Corpuscular Hemoglobin 32.6 % 33.2 % Concent Red Cell Distribution Width 24.7 % 24.6 % Platelet Count 80 TH/MM3 70 TH/MM3 Mean Platelet Volume 9.0 FL 8.9 FL Neutrophils (%) (Auto) 49.6 % 45.2 % Lymphocytes (%) (Auto) 39.3 % 43.7 % Monocytes (%) (Auto) 10.0 % 9.6 % Eosinophils (%) (Auto) 0.5 % 1.0 % Basophils (%) (Auto) 0.6 % 0.5 % Neutrophils # (Auto) 1.9 TH/MM3 1.2 TH/MM3 Lymphocytes # (Auto) 1.5 TH/MM3 1.1 TH/MM3 Monocytes # (Auto) 0.4 TH/MM3 0.2 TH/MM3 Eosinophils # (Auto) 0.0 TH/MM3 0.0 TH/MM3 Basophils # (Auto) 0.0 TH/MM3 0.0 TH/MM3 CBC Comment AUTO DIFF AUTO DIFF Differential Comment AUTO DIFF FINAL DIFF CONFIRMED MANUAL Platelet Estimate LOW LOW Platelet Morphology Comment NORMAL NORMAL Sodium Level 147 MEQ/L 143 MEQ/L Potassium Level 3.5 MEQ/L 3.3 MEQ/L Chloride Level 116 MEQ/L 114 MEQ/L Carbon Dioxide Level 19.4 MEQ/L 15.9 MEQ/L Anion Gap 12 MEQ/L 13 MEQ/L Blood Urea Nitrogen 30 MG/DL 21 MG/DL Creatinine 2.72 MG/DL 2.20 MG/DL Estimat Glomerular Filtration 17 ML/MIN 22 ML/MIN Rate Random Glucose 70 MG/DL 69 MG/DL Calcium Level 7.6 MG/DL 7.4 MG/DL Magnesium Level 2.0 MG/DL 1.7 MG/DL Differential Total Cells 100 Counted Neutrophils % (Manual) 67 % Band Neutrophils % 2 % Lymphocytes % 22 % Monocytes % 7 % Neutrophils # (Manual) 1.8 TH/MM3 Metamyelocytes 1 % Myelocytes 1 % Nucleated Red Blood Cells 1 /100 WBC Ovalocytes 1+ Acanthocytes OCC Protein Corrected Calcium 8.6 MG/DL Total Protein 5.0 GM/DL Thyroid Stimulating Hormone 6.760 uIU/ML 3rd Gen Imaging Last Impressions Chest X-Ray 03/23/17 1948 Signed Impressions: Service Date/Time: Thursday, March 23, 2017 20:06 - CONCLUSION: No evidence of acute cardiopulmonary disease. Rayshawn Barksdale MD Abdomen X-Ray 03/23/17 1729 Signed Impressions: Service Date/Time: Thursday, March 23, 2017 17:52 - CONCLUSION: 1. Benign-appearing abdomen. 2. Osteopenia of the visualized osseous structures. Age-indeterminate compression fracture of L4. Previous kyphoplasty of T12. Rayshawn Barksdale MD Head CT 03/23/17 0000 Signed Impressions: Service Date/Time: Thursday, March 23, 2017 21:13 - CONCLUSION: 1. Old area of infarct in the watershed distribution between the right frontal and parietal cortex. 2. No acute abnormality seen. Osiel Lacy MD Objective Remarks General: NAD, Awake and alert, oriented to self and place Chest: CTA Cardiac: Regular Abd: +BS, soft ND/NT Ext: No edema A/P Problem List: (1) Altered mental status, unspecified Status: Acute Plan: - Pt is a 76 y/o with hypertension, hx of CVA, and hypothyroidism who presented to the ED at [facility] on 03/23/17 for evaluation of altered mental status and anemia. - Pt had outpt labs on 03/20/17 which noted a hemoglobin of 5.2. Pt also noted to be in ARF with Cr 3.44. - Outpt records from 08/2016 pt was noted to have Cr. 1.36 and Hgb 14. - In review of the records, the pt was recently admitted to [facility] from to 03/02/17 for AMS, acute renal failure, Coumadin toxicity and anemia. She was reportedly having hematuria at that time which resolved once her INR improved. She was found to have an E. coli UTI which was treated with Rocephin and then oral Cipro. Pt was initiated on FeSO4 for her anemia. It was also noted that the pts mentation improved with correction of her acute renal failure. - On 03/20/17 the patient has been seen by Dr. Diallo and according to the outpt notes the pt had been having intermittent N/V but no reported hematemesis or coffee-ground emesis. Pt was also noted to be Hemoccult positive. She was planned to undergo evaluation with EGD/colonoscopy and was ordered for a blood transfusion. - It appears that she has been taken off the Coumadin as this was not on her admission Med Rec and not listed in [facility]pt medication [facility] - Pt has been transfused with 2 units PRBCs with improvement in H/H - H/H is currently stable. - GI is consulted for evaluation of anemia and GIB. - Pt underwent evaluation with EGD on 03/25/17 which noted gastritis - Pt had been planned for colonoscopy today but she refused to complete the GoLytely prep. - GI writing for alternative prep today and will anticipate colonoscopy for . - Renal function is improving slowly - Pts not clear if the pt has baseline dementia or not based on outpt records. - Head CT w/o contrast (03/24/17) --> Old area of infarct in the watershed distribution between the right frontal and parietal cortex. No acute abnormality seen. - Repeat BMP in AM - DVT prophylaxis with SCDs (2) Anemia Status: Acute Plan: - See above. (3) GI bleed Status: Acute Plan: - See above. (4) ARF (acute renal failure) Status: Acute Plan: - See above. (5) Hypertension Status: Chronic Plan: - Currently BP is stable. - Its unclear what her outpt BP medications are - We will need to review this with her PCP office for confirmation since her recent discharge from [place] - Clonidine PRN (6) Hypothyroidism Status: Chronic Plan: - Labs at admission with TSH 10.3 and free T4 1.56 - Home dose of Synthroid 75mcg was resumed at admission - Recheck TSH (03/26) with improvement in TSH to 6.760 (7) Hyperlipidemia Status: Chronic Plan: - Cont. home meds (8) CVA (cerebral infarction) Status: Chronic Plan: - Pt with hx of right MCA distribution CVA in 2010 s/p TPA - Pt had been on Coumadin previously Assessment and Plan Patient examined. Assessment and plan formulated with Lucille Washington PA-C. I agree with the above. Problem Qualifiers (1) Anemia: Qualified Code: D64.9 - Anemia, unspecified type (2) GI bleed: Qualified Code: K92.2 - Gastrointestinal hemorrhage, unspecified gastrointestinal hemorrhage type (3) ARF (acute renal failure): Qualified Code: N17.9 - Acute renal failure, unspecified acute renal failure type Lucille Washington Mar 26, 2017 13:56 eJred Montes De Oca DO Mar 28, 2017 21:41
--- NOTE | 2017-03-26 15:30 | HHI.GIFU ---
Subjective Remarks Pt resting in bed, in no apparent distress. Says she is happy to be getting colonoscopy tomorrow so she can go home. Per RN pt is still having dark stools. (Stephania Marks) Objective Vitals I&O Vital Signs Date Time Temp Pulse Resp B/P Pulse Ox O2 Delivery O2 Flow Rate FiO2 03/26/17 12:00 96.2 92 17 123/69 96 03/26/17 08:00 98.3 90 17 133/70 98 03/26/17 04:00 96.5 90 20 135/65 95 03/26/17 00:00 97.1 88 20 128/60 95 03/25/17 20:00 96.4 91 20 128/67 98 I/O 03/25/17 03/25/17 03/25/17 03/26/17 03/26/17 03/26/17 07:00 15:00 23:00 07:00 15:00 23:00 Intake Total 1642 ml 1132 ml 746 ml 0 ml 682 ml Output Total 2 ml Balance 1642 ml 1130 ml 746 ml 0 ml 682 ml Intake Oral 0 ml 240 ml 240 ml 0 ml 0 ml IV Total 1642 ml 892 ml 506 ml 682 ml Output Urine Total 2 ml # Voids 4 2 4 10 # Bowel Movements 4 1 4 9 11 Laboratory Laboratory Tests Test 03/26/17 04:46 White Blood Count 2.6 Red Blood Count 2.90 Hemoglobin 8.7 Hematocrit 26.1 Mean Corpuscular Volume 90.1 Mean Corpuscular Hemoglobin 29.9 Mean Corpuscular Hemoglobin 33.2 Concent Red Cell Distribution Width 24.6 Platelet Count 70 Mean Platelet Volume 8.9 Neutrophils (%) (Auto) 45.2 Lymphocytes (%) (Auto) 43.7 Monocytes (%) (Auto) 9.6 Eosinophils (%) (Auto) 1.0 Basophils (%) (Auto) 0.5 Neutrophils # (Auto) 1.2 Lymphocytes # (Auto) 1.1 Monocytes # (Auto) 0.2 Eosinophils # (Auto) 0.0 Basophils # (Auto) 0.0 CBC Comment AUTO DIFF Differential Total Cells 100 Counted Neutrophils % (Manual) 67 Band Neutrophils % 2 Lymphocytes % 22 Monocytes % 7 Neutrophils # (Manual) 1.8 Metamyelocytes 1 Myelocytes 1 Nucleated Red Blood Cells 1 Differential Comment FINAL DIFF MANUAL Platelet Estimate LOW Platelet Morphology Comment NORMAL Ovalocytes 1+ Acanthocytes OCC Sodium Level 143 Potassium Level 3.3 Chloride Level 114 Carbon Dioxide Level 15.9 Anion Gap 13 Blood Urea Nitrogen 21 Creatinine 2.20 Estimat Glomerular Filtration 22 Rate Random Glucose 69 Calcium Level 7.4 Protein Corrected Calcium 8.6 Magnesium Level 1.7 Total Protein 5.0 Thyroid Stimulating Hormone 6.760 3rd Gen Imaging Last Impressions Chest X-Ray 03/23/17 1948 Signed Impressions: Service Date/Time: Thursday, March 23, 2017 20:06 - CONCLUSION: No evidence of acute cardiopulmonary disease. Rayshawn Barksdale MD Abdomen X-Ray 03/23/17 1729 Signed Impressions: Service Date/Time: Thursday, March 23, 2017 17:52 - CONCLUSION: 1. Benign-appearing abdomen. 2. Osteopenia of the visualized osseous structures. Age-indeterminate compression fracture of L4. Previous kyphoplasty of T12. Rayshawn Barksdale MD Head CT 03/23/17 0000 Signed Impressions: Service Date/Time: Thursday, March 23, 2017 21:13 - CONCLUSION: 1. Old area of infarct in the watershed distribution between the right frontal and parietal cortex. 2. No acute abnormality seen. Osiel Lacy MD Physical Exam HEENT: EOMI; normocephalic; atraumatic; no jaundice. CHEST: CTA CARDIAC: RRR ABDOMEN: Soft, nondistended, nontender; no hepatosplenomegaly; bowel sounds are present in all four quadrants. EXTREMITIES: No clubbing, cyanosis, or edema. SKIN: Normal; no rash; no jaundice. EXPORT ADMINISTRATOR: Alert, mildly confused (Stephania Marks) Assessment and Plan Plan ASSESSMENT - melena - report of recent hemoccult pos result. Melena per RN, EMR. d/w RN, daughter will give consent. Colonoscopy reschedule for tomorrow with different prep- pt refused golytely - anemia - Hgb 6.0 on admission. Currently 8.7 PLAN - colonoscopy in AM - clears for now - dulcolax, enemas - NPO after midnight - monitor HH - transfuse if needed - further recommendations to follow This pt seen by myself and Dr Manzano and this note is written on his behalf. ( Stephania Marks) Physician Comments Agree with plan as above. Colonoscopy in AM. Further recommendations to follow. (Jory Manzano MD) Stephania Marks Mar 26, 2017 15:30 Jory Manzano MD Mar 26, 2017 23:51
[2017-03-26] MEDS ORDERED: BISACODYL EC 5 MG TABEC PO ONE ×2 (16:00→21:00)
[2017-03-26] MEDS ORDERED: DEXTROSE 50% IN WATER 50 ML SYRINGE ONE (22:00)
[2017-03-26] MEDS ORDERED: DEXTROSE 50% IN WATER 50 ML SYRINGE IV ONE (22:00)
[2017-03-26] MEDS ORDERED: SOD PHOSPHATE/SOD BIPHOSPHATE (ADULT) ENEMA 133ML RECTAL ONE (22:00)
[2017-03-26] MEDS ORDERED: DEXTROSE 50% IN WATER 50 ML VIAL(D50) ONE (22:00)
--- NOTE | 2017-03-26 22:07 | HHI.PR ---
Subjective Remarks Called to see pt re: slurred speech/facial droop. Stroke alert called. Objective Vitals Vital Signs Date Time Temp Pulse Resp B/P Pulse Ox O2 Delivery O2 Flow Rate FiO2 03/26/17 21:40 96 Nasal Cannula 2.00 03/26/17 21:35 96 2.00 03/26/17 20:00 96.8 92 20 136/69 96 03/26/17 16:00 96.4 96 17 131/72 96 03/26/17 12:00 96.2 92 17 123/69 96 03/26/17 08:00 98.3 90 17 133/70 98 03/26/17 04:00 96.5 90 20 135/65 95 03/26/17 00:00 97.1 88 20 128/60 95 03/25/17 03/25/17 03/26/17 15:00 23:00 07:00 Intake Total 1132 ml 746 ml 0 ml Output Total 2 ml Balance 1130 ml 746 ml 0 ml Intake Oral 240 ml 240 ml 0 ml IV Total 892 ml 506 ml Output Urine Total 2 ml # Voids 2 4 # Bowel Movements 1 4 9 Result Diagram: 03/26/17 0446 03/26/17 0446 Imaging Last Impressions Chest X-Ray 03/23/17 1948 Signed Impressions: Service Date/Time: Thursday, March 23, 2017 20:06 - CONCLUSION: No evidence of acute cardiopulmonary disease. Rayshawn Barksdale MD Abdomen X-Ray 03/23/17 1729 Signed Impressions: Service Date/Time: Thursday, March 23, 2017 17:52 - CONCLUSION: 1. Benign-appearing abdomen. 2. Osteopenia of the visualized osseous structures. Age-indeterminate compression fracture of L4. Previous kyphoplasty of T12. Rayshawn Barksdale MD Head CT 03/23/17 0000 Signed Impressions: Service Date/Time: Thursday, March 23, 2017 21:13 - CONCLUSION: 1. Old area of infarct in the watershed distribution between the right frontal and parietal cortex. 2. No acute abnormality seen. Osiel Lacy MD Objective Remarks General: NAD, Awake and alert, a bit confused, but answers ?s appropriately and moves all ext to command right facial droop noted with slight slurring of speech Chest: CTA Cardiac: Regular Abd: +BS, soft ND/NT Ext: strength 5/5 x 4 A/P Problem List: (1) Altered mental status, unspecified Status: Acute Plan: - Pt is a 76 y/o with hypertension, hx of CVA, and hypothyroidism who presented to the ED at [facility] on 03/23/17 for evaluation of altered mental status and anemia. Called to see pt for possible recurrent CVA. Strength OK peripherally, but some slurring and facial droop noted. Random sugar in low 60's. We gave D50 with slight improvement, but still with facial droop. Stroke alert protocol still active at present and pt headed for CT scan. Neuro notified. -EGD noted. 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 Problem Qualifiers (1) GI bleed: Qualified Code: K92.2 - Gastrointestinal hemorrhage, unspecified gastrointestinal hemorrhage type Jacinto Diehl MD PhD Mar 26, 2017 22:07
[2017-03-26 22:21] LABS: I-STAT POTASSIUM 4.1 MMOL/L (3.5-4.9)
--- NOTE | 2017-03-26 22:28 | RADRPT ---
EXAM DATE/TIME: 03/26/2017 22:15 [facility] COMPARISON: CT BRAIN W/O CONTRAST, March 23, 2017, 21:13. INDICATIONS : Stroke Alert. Facial droop with slurred speech. RADIATION DOSE: 33.76 CTDIvol (mGy) MEDICAL HISTORY : Cerebrovascular disease. Hypertension. SURGICAL HISTORY : None. ENCOUNTER: Initial ACUITY: 1 day PAIN SCALE: 0/10 LOCATION: cranial TECHNIQUE: Multiple contiguous axial images were obtained of the head. Using automated exposure control and adj ustment of the mA and/or kV according to patient size, radiation dose was kept as low as reasonably a chievable to obtain optimal diagnostic quality images. FINDINGS: There is encephalomalacia in the right frontal region. Patchy white matter hypodensity in the subcort ical and periventricular regions is grossly stable. There is no evidence of intracranial hemorrhage o r mass. The there is nothing to indicate acute infarction. Extracranial structures are stable and sukhjinder ign. CONCLUSION: Stable brain appearance. No acute intracranial findings. Findings were reported to the patient's nurse Anabela upon interpretation. Rayshawn Reardon MD on March 26, 2017 at 22:22 Board Certified Radiologist. This report was verified electronically.
[2017-03-26 22:48] LABS: APTT (PATIENT) 22.3 SEC (24.3-30.1)
[2017-03-26 23:12] LABS: AUTOMATED NEUTROPHIL # 1.4 TH/MM3 (1.8-7.7); BASOPHIL # 0.1 TH/MM3 (0-0.2); BASOPHIL % 1.8 % (0.0-2.0); EOSINOPHIL % 1.4 % (0.0-4.0); HEMATOCRIT 29.1 % (35.0-46.0); LYMPH % 41.7 % (9.0-44.0); LYMPHOCYTE # 1.3 TH/MM3 (1.0-4.8); MEAN CELL VOLUME 91.5 FL (80.0-100.0); MEAN CORPUSCULAR HEMOGLOBIN 29.6 PG (27.0-34.0); MEAN CORPUSCULAR HGB CONC 32.4 % (32.0-36.0); NEUT % 46.1 % (16.0-70.0); PLATELET COUNT 80 TH/MM3 (150-450); RED BLOOD COUNT 3.18 MIL/MM3 (4.00-5.30); RED CELL DISTRIBUTION WIDTH 25.4 % (11.6-17.2)
[2017-03-26 23:13] LABS: HEMO FLAGS AUTO DIFF
[2017-03-26 23:40] LABS: OVALOCYTES 2+ (NORMAL); PLATELET ESTIMATE SMEAR LOW (NORMAL); PLATELET MORPHOLOGY NORMAL (NORMAL); SCAN/DIFF AUTO DIFF CONFIRMED
[2017-03-27] VITALS (14 sets, daily range): BP systolic 103–155; BP diastolic 64–75; PULSE 82–103; RESP 12–25; TEMP 97.8–98.5; O2SAT 95–100
[2017-03-27] MEDS ORDERED: DEXT 5%-NACL 0.45% 1000 ML INJ 1,000 ML IV SCH ×2 (02:00→02:30)
[2017-03-27 04:23] LABS: AUTOMATED NEUTROPHIL # 1.1 TH/MM3 (1.8-7.7); BASOPHIL % 0.5 % (0.0-2.0); EOSINOPHIL % 1.5 % (0.0-4.0); HEMATOCRIT 28.7 % (35.0-46.0); LYMPH % 43.4 % (9.0-44.0); LYMPHOCYTE # 1.1 TH/MM3 (1.0-4.8); MEAN CELL VOLUME 90.7 FL (80.0-100.0); MEAN CORPUSCULAR HEMOGLOBIN 29.8 PG (27.0-34.0); MEAN CORPUSCULAR HGB CONC 32.8 % (32.0-36.0); NEUT % 45.6 % (16.0-70.0); PLATELET COUNT 72 TH/MM3 (150-450); RED BLOOD COUNT 3.16 MIL/MM3 (4.00-5.30); RED CELL DISTRIBUTION WIDTH 25.3 % (11.6-17.2); WHITE BLOOD COUNT 2.5 TH/MM3 (4.0-11.0)
[2017-03-27 04:27] LABS: HEMO FLAGS AUTO DIFF
[2017-03-27 04:57] LABS: BICARBONATE 16.4 MEQ/L (21.0-32.0); MAGNESIUM 1.5 MG/DL (1.5-2.5); POTASSIUM 3.1 MEQ/L (3.5-5.1)
[2017-03-27 05:09] LABS: CALCIUM-PROTEIN CORRECTED 8.3 MG/DL (8.5-10.1)
[2017-03-27] MEDS: LEVOTHYROXINE SODIUM 75 MCG TAB PO SCH (06:00)
[2017-03-27] MEDS: FERROUS SULFATE 325 MG (65 MG ELEMENTAL IRON) TAB PO SCH ×2 (06:42→16:00)
[2017-03-27 06:57] LABS: KERATOCYTES OCC (NORMAL); OVALOCYTES 1+ (NORMAL); PLATELET ESTIMATE SMEAR LOW (NORMAL); PLATELET MORPHOLOGY NORMAL (NORMAL); SCAN/DIFF AUTO DIFF CONFIRMED
[2017-03-27] MEDS ORDERED: SOD PHOSPHATE/SOD BIPHOSPHATE (ADULT) ENEMA 133ML RECTAL ONE (08:00)
[2017-03-27] MEDS: PANTOPRAZOLE SODIUM 40 MG VIAL IV PUSH SCH (08:00)
[2017-03-27] MEDS: DOCUSATE SODIUM 100 MG CAP PO SCH ×2 (08:59→19:44)
[2017-03-27] MEDS: SODIUM CHLORIDE 0.9% FLUSH 10 ML FLUSH IV FLUSH SCH ×2 (08:59→21:38)
[2017-03-27] MEDS ORDERED: SODIUM CHLORIDE 0.9% FLUSH 5 ML FLUSH IV FLUSH PRN (10:15)
[2017-03-27] MEDS ORDERED: DEXTROSE 50% IN WATER 50 ML VIAL(D50) IV PUSH PRN (10:15)
[2017-03-27] MEDS ORDERED: GLUCAGON 1 MG/ML VIAL OTHER PRN (10:15)
[2017-03-27] MEDS: INSULIN ASPART SUPPLEMENTAL SCALE SQ SCH ×3 (11:00→21:00)
--- NOTE | 2017-03-27 11:36 | MB ---
cc: KARYNA ELKINS M.D. DATE OF CONSULTATION 03/27/2017 REASON FOR CONSULTATION Stroke alert HISTORY OF PRESENT ILLNESS Ms. Ariza is a 76-year-old female who is admitted with a GI hemorrhage. Yesterday evening she developed the acute onset of slurred speech, as well as a right facial droop. Stroke alert was called, Dr. Manjit Kurtz, who was covering at the time, evaluated the case. She had a stat CT of the brain done. It showed encephalomalacia in the right frontal region which was stable. No hemorrhage was seen. No acute change was identified. There was no mass effect. Because of her recent GI hemorrhage, as well as the relative minor symptomatology, it was felt that she was not a candidate for IV tPA. Over the evening, the patient reports improvement. She feels his speech is back to normal and she no longer experiences facial weakness. She denies any weakness of the upper or lower extremities. PAST MEDICAL HISTORY 1. She has a history of stroke in the past in the right hemisphere treated with IV tPA in 2010. Previously was on Coumadin therapy. 2. History of hypertension 3. Hypothyroidism 4. History of acute renal failure. 5. Thoracic lumbar compression fracture 6. T12 kyphoplasty 7. Chronic kidney disease stage III CURRENT MEDICATIONS 1. Protonix 40 was daily 2. Synthroid 75 mcg daily 3. Colace 100 mg b.i.d. 4. Iron sulfate 325 mg b.i.d. 5. Tylenol as needed 6. Zofran p.r.n. 7. Milk of Magnesia as needed 8. Ativan as needed NEUROLOGIC EXAMINATION VITAL SIGNS: Her blood pressure is 141/67, pulse 82, respiratory rate is 12 temperatures 98.5 degrees. Higher cortical functions, at this time, she is alert. She is oriented x3. Speech is normal at this time. There is no dysarthria. No aphasia. Cranial nerves are intact. There is no facial droop today. Motor exam is 5/5 in both upper and lower extremities. Reflexes symmetric. LABORATORY DATA White count 2500, hemoglobin 9.4, hematocrit 28%, platelet count is 72,000, PT 11, INR 1, APTT 22.3. Sodium is 139, potassium 4.1, chloride 115, CO2 is 15.9, BUN is 18, creatinine 2.1, TSH 6.76. IMPRESSION Probable TIA which now has resolved. I agree that the patient was not a candidate for IV tPA as noted above. RECOMMENDATIONS Because of the recent GI bleed, she is not a candidate at the present time for antiplatelet or anticoagulation. I would recommend carotid ultrasound and echocardiogram and close neurological monitoring at the present time. Also check a lipid panel. MD JENNIFER Duong/KELLI /10:12 AM /11:18 AM
--- NOTE | 2017-03-27 11:43 | RADRPT ---
EXAM DATE/TIME: 03/27/2017 10:25 [facility] COMPARISON: No previous studies available for comparison. INDICATIONS : Cerebrovascular accident. MEDICAL HISTORY : Hypercholesterolemia. Hypothyroidism. Gastroesophageal reflux disease. HTN. CVA. Shingles. Hyperlipid emia. CKD, stage III. Thoracic lumbar compression fracture. SURGICAL HISTORY : Kyphoplasty. ENCOUNTER: Initial ACUITY: 1 day PAIN SCORE: 0/10 LOCATION: Bilateral neck PEAK SYSTOLIC VELOCITIES (cm/sec): ICA/CCA RATIO: Right: 1.3 Left: 0.8 ICA: Right: 67 Left: 67 CCA: Right: 51 Left: 85 ECA: Right: 72 Left: 58 VERTEBRAL: Right: 56 antegrade Left: 45 antegrade Elevated flow velocities and ICA/CCA ratios have been found to correlate with increased degrees of vessel stenosis, calculated as percentage of diameter relative to a normal segment of distal ICA/CCA FINDINGS: RIGHT CAROTID: Smooth calcified plaque in the bulb. Slight increased ratio. The waveforms are within normal limits. LEFT CAROTID: Smooth calcified plaque in the bulb. The waveforms are within normal limits. VERTEBRAL ARTERIES: Antegrade flow is seen in both vertebral arteries. MISCELLANEOUS: None. CONCLUSION: 1. Mild calcified plaque in the carotid bulbs bilaterally without hemodynamically significant flow-li miting stenosis. 2. Antegrade vertebral artery flow bilaterally. Humza Cooney MD on March 27, 2017 at 11:33 Board Certified Radiologist. This report was verified electronically.
[2017-03-27] MEDS ORDERED: POTASSIUM CHLORIDE 20 MEQ CONTROLLED RELEASE TAB PO ONE (13:00)
--- NOTE | 2017-03-27 13:34 | HHI.GIFU ---
Subjective Remarks Pt resting in bed, in no apparent distress. Denies n/v, pain. Says she is fine. (Stephania Marks) Objective Vitals I&O Vital Signs Date Time Temp Pulse Resp B/P Pulse Ox O2 Delivery O2 Flow Rate FiO2 03/27/17 12:00 92 03/27/17 12:00 97.9 92 19 155/75 96 03/27/17 10:00 87 03/27/17 09:08 98 Nasal Cannula 2.00 03/27/17 08:00 84 03/27/17 08:00 97.8 84 16 128/64 98 03/27/17 07:00 97 Nasal Cannula 2.00 03/27/17 06:00 84 03/27/17 04:00 82 03/27/17 04:00 98.5 82 12 141/67 100 03/27/17 02:00 88 03/27/17 00:00 86 03/27/17 00:00 98.4 86 25 125/66 95 03/26/17 22:45 100 03/26/17 22:45 97.1 100 27 158/81 100 03/26/17 21:40 96 Nasal Cannula 2.00 03/26/17 21:35 96 2.00 03/26/17 20:00 96.8 92 20 136/69 96 03/26/17 16:00 96.4 96 17 131/72 96 I/O 03/26/17 03/26/17 03/26/17 03/27/17 03/27/17 03/27/17 07:00 15:00 23:00 07:00 15:00 23:00 Intake Total 0 ml 682 ml 218 ml Balance 0 ml 682 ml 218 ml Intake Oral 0 ml 0 ml IV Total 682 ml 218 ml # Voids 4 10 2 # Bowel Movements 9 11 2 Laboratory Laboratory Tests Test 03/26/17 03/26/17 03/26/17 03/27/17 22:05 22:56 23:00 03:55 Bedside Hemoglobin 9.2 Bedside Hematocrit 27.0 Prothrombin Time 11.0 Prothromb Time International 1.0 Ratio Activated Partial 22.3 Thromboplast Time Fibrinogen 187 Bedside Sodium 139 Bedside Potassium 4.1 Bedside Chloride 115 Bedside Blood Urea Nitrogen 18 Bedside Creatinine 2.1 Bedside Glucose 62 Total Creatine Kinase 69 Troponin I 0.09 White Blood Count 3.0 2.5 Red Blood Count 3.18 3.16 Hemoglobin 9.4 9.4 Hematocrit 29.1 28.7 Mean Corpuscular Volume 91.5 90.7 Mean Corpuscular Hemoglobin 29.6 29.8 Mean Corpuscular Hemoglobin 32.4 32.8 Concent Red Cell Distribution Width 25.4 25.3 Platelet Count 80 72 Mean Platelet Volume 8.8 8.9 Neutrophils (%) (Auto) 46.1 45.6 Lymphocytes (%) (Auto) 41.7 43.4 Monocytes (%) (Auto) 9.0 9.0 Eosinophils (%) (Auto) 1.4 1.5 Basophils (%) (Auto) 1.8 0.5 Neutrophils # (Auto) 1.4 1.1 Lymphocytes # (Auto) 1.3 1.1 Monocytes # (Auto) 0.3 0.2 Eosinophils # (Auto) 0.0 0.0 Basophils # (Auto) 0.1 0.0 CBC Comment AUTO DIFF AUTO DIFF Differential Comment AUTO DIFF AUTO DIFF CONFIRMED CONFIRMED Platelet Estimate LOW LOW Platelet Morphology Comment NORMAL NORMAL Ovalocytes 2+ 1+ Blood Type A POSITIVE Antibody Screen NEGATIVE Nasal Screen MRSA (PCR) MRSA NOT DETECTED Keratocytes OCC Sodium Level 142 Potassium Level 3.1 Chloride Level 113 Carbon Dioxide Level 16.4 Anion Gap 13 Blood Urea Nitrogen 15 Creatinine 2.03 Estimat Glomerular Filtration 24 Rate Random Glucose 84 Calcium Level 7.2 Protein Corrected Calcium 8.3 Magnesium Level 1.5 Total Protein 5.1 Imaging Last Impressions Carotid Artery Ultrasound 03/27/17 0000 Signed Impressions: Service Date/Time: Monday, March 27, 2017 10:25 - CONCLUSION: 1. Mild calcified plaque in the carotid bulbs bilaterally without hemodynamically significant flow-limiting stenosis. 2. Antegrade vertebral artery flow bilaterally. Humza Cooney MD Head CT 03/26/17 0000 Signed Impressions: Service Date/Time: March 22:15 - CONCLUSION: Stable brain appearance. No acute intracranial findings. Findings were reported to the patient's nurse Anabela upon interpretation. Rayshawn Reardon MD Chest X-Ray 03/23/17 194 Signed Impressions: Service Date/Time: Thursday, March 23, 2017 20:06 - CONCLUSION: No evidence of acute cardiopulmonary disease. aRyshawn Barksdale MD Abdomen X-Ray 03/23/17 2098 Signed Impressions: Service Date/Time: Thursday, March 23, 2017 17:52 - CONCLUSION: 1. Benign-appearing abdomen. 2. Osteopenia of the visualized osseous structures. Age-indeterminate compression fracture of L4. Previous kyphoplasty of T12. Rayshawn Barksdale MD Physical Exam HEENT: EOMI; normocephalic; atraumatic; no jaundice. CHEST: CTA CARDIAC: RRR ABDOMEN: Soft, nondistended, nontender; no hepatosplenomegaly; bowel sounds are present in all four quadrants. EXTREMITIES: No clubbing, cyanosis, or edema. SKIN: Normal; no rash; no jaundice. THEATRE MANAGER: Alert, mildly confused (Stephania Marks) Assessment and Plan Plan ASSESSMENT - melena - report of recent hemoccult pos result. Per RN no more black stools. d/w RN, daughter will give consent. Colonoscopy attempted and pt refused GoLytely. alternate prep initiated and pt had TIA overnight and was moved to [facility] so colonoscopy on hold. Consider colonoscopy thursday vs outpatient - anemia - Hgb 6.0 on admission. Currently 9.4, stable PLAN - consider colonoscopy thursday or as outpatient - JEIMY - monitor HH - transfuse if needed - further recommendations to follow This pt seen by myself and Dr Manzano and this note is written on his behalf. ( Stephania Marks) Physician Comments Events of last night noted, will need colonoscopy that can be done as outpatient or early next week, stable HH since admission. Further recommendations to follow. (Jory Manzano MD) Stephania Marks Mar 27, 2017 13:33 Jory Manzano MD Mar 27, 2017 17:03
[2017-03-27 15:56] LABS: HEMOGLOBIN A1a 1.2 %; HEMOGLOBIN A1b 0.7 %; HEMOGLOBIN Ao 85.9 %; HEMOGLOBIN F 1.7 %; HEMOGLOBIN LA1C 1.6 %; HEMOGLOBIN P3 3.4 %
--- NOTE | 2017-03-27 16:50 | ECHRPT ---
Indication: cva/tia CONCLUSIONS Mild concentric left ventricular hypertrophy. The left ventricular systolic function is normal with an estimated ejection fraction in the range of 55-60%. Trace mitral valve regurgitation. There is mild tricuspid valve regurgitation. BP: 136 / 69 HR: 92 Rhythm: MEASUREMENTS (Male / Female) Normal Values Technical Quality:good 2D ECHO LV Diastolic Diameter PLAX 3.6 cm 4.2 - 5.9 / 3.9 - 5.3 cm LV Systolic Diameter PLAX 2.7 cm IVS Diastolic Thickness 1.4 cm 0.6 - 1.0 / 0.6 - 0.9 cm LVPW Diastolic Thickness 1.2 cm 0.6 - 1.0 / 0.6 - 0.9 cm LV Relative Wall Thickness 0.7 RV Internal Dim ED PLAX 2.1 cm M-MODE Aortic Root Diameter MM 2.5 cm LA Systolic Diameter MM 4.0 cm LA Ao Ratio MM 1.6 AV Cusp Separation MM 1.6 cm DOPPLER Mitral E Point Velocity 53.3 cm/s Mitral A Point Velocity 82.4 cm/s Mitral E to A Ratio 0.6 LV E' Lateral Velocity 6.8 cm/s Mitral E to LV E' Lateral Ratio 7.8 LV E' Septal Velocity 5.7 cm/s Mitral E to LV E' Septal Ratio 9.4 FINDINGS LEFT VENTRICLE Mild concentric left ventricular hypertrophy. The left ventricular systolic function is normal with an estimated ejection fraction in the range of 55-60%. MITRAL VALVE Trace mitral valve regurgitation. TRICUSPID VALVE There is mild tricuspid valve regurgitation. Martinez Greer MD (Electronically Signed) Final Date:27 March 2017 16:50
--- NOTE | 2017-03-27 17:19 | HHI.PR ---
Subjective Remarks right facial droop and slurred speech last night, now resolved. Pt denies new complaints. Objective Vitals Vital Signs Date Time Temp Pulse Resp B/P Pulse Ox O2 Delivery O2 Flow Rate FiO2 03/27/17 14:00 93 03/27/17 12:00 92 03/27/17 12:00 97.9 92 19 155/75 96 03/27/17 10:00 87 03/27/17 09:08 98 Nasal Cannula 2.00 03/27/17 08:00 84 03/27/17 08:00 97.8 84 16 128/64 98 03/27/17 07:00 97 Nasal Cannula 2.00 03/27/17 06:00 84 03/27/17 04:00 82 03/27/17 04:00 98.5 82 12 141/67 100 03/27/17 02:00 88 03/27/17 00:00 86 03/27/17 00:00 98.4 86 25 125/66 95 03/26/17 22:45 100 03/26/17 22:45 97.1 100 27 158/81 100 03/26/17 21:40 96 Nasal Cannula 2.00 03/26/17 21:35 96 2.00 03/26/17 20:00 96.8 92 20 136/69 96 03/26/17 03/26/17 03/27/17 15:00 23:00 07:00 Intake Total 682 ml 218 ml Balance 682 ml 218 ml Intake Oral 0 ml IV Total 682 ml 218 ml # Voids 10 2 # Bowel Movements 11 2 Result Diagram: 03/27/17 0355 03/27/17 0355 Imaging Last Impressions Carotid Artery Ultrasound 03/27/17 0000 Signed Impressions: Service Date/Time: Monday, March 27, 2017 10:25 - CONCLUSION: 1. Mild calcified plaque in the carotid bulbs bilaterally without hemodynamically significant flow-limiting stenosis. 2. Antegrade vertebral artery flow bilaterally. Humza Cooney MD Head CT 03/26/17 0000 Signed Impressions: Service Date/Time: March 22:15 - CONCLUSION: Stable brain appearance. No acute intracranial findings. Findings were reported to the patient's nurse Anabela upon interpretation. Rayshawn Reardon MD Chest X-Ray 6/03/04 1948 Signed Impressions: Service Date/Time: Thursday, March 23, 2017 20:06 - CONCLUSION: No evidence of acute cardiopulmonary disease. Rayshawn Barksdale MD Abdomen X-Ray 03/23/17 1729 Signed Impressions: Service Date/Time: Thursday, March 23, 2017 17:52 - CONCLUSION: 1. Benign-appearing abdomen. 2. Osteopenia of the visualized osseous structures. Age-indeterminate compression fracture of L4. Previous kyphoplasty of T12. Rayshawn Barksdale MD Objective Remarks General: NAD, Awake and alert, a bit confused, but answers ?s appropriately and moves all ext to command right facial droop noted with slight slurring of speech Chest: CTA Cardiac: Regular Abd: +BS, soft ND/NT Ext: strength 5/5 x 4 A/P Problem List: (1) CVA (cerebral infarction) Status: Chronic Plan: - Pt appears to have suffered new TIA - comgmt with Neurology - cannot anticoagulate at this time d/t possible GIB - CT brain (03/26/17) --> NO acute findings - carotid US (03/27/17) --> NO hemodynamically significant stenosis - echocardiogram --> pending - fasting lipid panel in AM - anticipate transfer to general medical floor 03/28 - Pt with 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 - EGD (03/26/17) --> gastritis - Colonoscopy once stable - DVT prophylaxis with SCDs (3) GI bleed Status: Acute Plan: - See above. - s/p transfusion of 2 units PRBCs - hg stable (4) ARF (acute renal failure) Status: Acute Plan: - continues to improve - repeat BMP in AM Problem Qualifiers (1) GI bleed: Qualified Code: K92.2 - Gastrointestinal hemorrhage, unspecified gastrointestinal hemorrhage type (2) ARF (acute renal failure): Qualified Code: N17.9 - Acute renal failure, unspecified acute renal failure type Jered Montes De Oca DO Mar 27, 2017 17:19
--- NOTE | 2017-03-27 17:39 | EKG ---
Date Performed: 03/26/2017 Time Performed: 21:45:24 PTAGE: 76 years EKG: SINUS TACHYCARDIA RIGHT BUNDLE BRANCH BLOCK LEFT ANTERIOR FASCICULAR BLOCK ABNORMAL ECG PREVIOUS TRACING : 03/23/2017 20.12 Compared to prior tracing no significant change DOCTOR: Juan Jose Johnson Interpretating Date/Time 03/27/2017 17:37:33
[2017-03-27] MEDS ORDERED: RESP: ALBUTEROL 2.5 MG/IPRATROPIUM 0.5 MG NEB (PRN) NEB (17:45)
[2017-03-27] MEDS ORDERED: NITROGLYCERIN 0.4 MG SL 25 TABS/BTL SL PRN (18:00)
[2017-03-27] MEDS: SODIUM CHLORIDE 0.9% FLUSH 5 ML FLUSH IV FLUSH SCH (21:38)
[2017-03-28] VITALS (12 sets, daily range): BP systolic 104–134; BP diastolic 51–69; PULSE 76–93; RESP 12–22; TEMP 97.1–98.7; O2SAT 96–98
[2017-03-28 04:28] LABS: AUTOMATED NEUTROPHIL # 1.1 TH/MM3 (1.8-7.7); BASOPHIL % 0.5 % (0.0-2.0); EOSINOPHIL # 0.1 TH/MM3 (0-0.4); HEMATOCRIT 26.8 % (35.0-46.0); LYMPH % 49.6 % (9.0-44.0); LYMPHOCYTE # 1.4 TH/MM3 (1.0-4.8); MEAN CELL VOLUME 90.9 FL (80.0-100.0); MEAN CORPUSCULAR HEMOGLOBIN 30.5 PG (27.0-34.0); MEAN CORPUSCULAR HGB CONC 33.5 % (32.0-36.0); MONO % 9.5 % (0.0-8.0); NEUT % 38.4 % (16.0-70.0); PLATELET COUNT 68 TH/MM3 (150-450); RED BLOOD COUNT 2.95 MIL/MM3 (4.00-5.30); RED CELL DISTRIBUTION WIDTH 26.7 % (11.6-17.2); WHITE BLOOD COUNT 2.9 TH/MM3 (4.0-11.0)
[2017-03-28 04:32] LABS: HEMO FLAGS AUTO DIFF
[2017-03-28 04:58] LABS: BICARBONATE 17.6 MEQ/L (21.0-32.0); MAGNESIUM 1.6 MG/DL (1.5-2.5); POTASSIUM 3.7 MEQ/L (3.5-5.1)
[2017-03-28 05:00] LABS: HDL CHOLESTEROL 28.2 MG/DL (40.0-60.0)
[2017-03-28] MEDS: LEVOTHYROXINE SODIUM 75 MCG TAB PO SCH (06:19)
[2017-03-28] MEDS: FERROUS SULFATE 325 MG (65 MG ELEMENTAL IRON) TAB PO SCH ×2 (06:19→16:00)
[2017-03-28] MEDS: INSULIN ASPART SUPPLEMENTAL SCALE SQ SCH ×4 (06:33→21:00)
[2017-03-28] MEDS ORDERED: POTASSIUM CHLORIDE 20 MEQ CONTROLLED RELEASE TAB PO ONE (07:45)
[2017-03-28 07:46] LABS: OVALOCYTES 1+ (NORMAL); PLATELET ESTIMATE SMEAR LOW (NORMAL); PLATELET MORPHOLOGY NORMAL (NORMAL)
[2017-03-28 07:47] LABS: SCAN/DIFF AUTO DIFF CONFIRMED
[2017-03-28] MEDS: PANTOPRAZOLE SODIUM 40 MG VIAL IV PUSH SCH (08:37)
[2017-03-28] MEDS: SODIUM CHLORIDE 0.9% FLUSH 5 ML FLUSH IV FLUSH SCH ×2 (08:38→21:19)
[2017-03-28] MEDS: SODIUM CHLORIDE 0.9% FLUSH 10 ML FLUSH IV FLUSH SCH ×2 (08:38→21:19)
[2017-03-28] MEDS: DOCUSATE SODIUM 100 MG CAP PO SCH ×2 (08:38→21:17)
--- NOTE | 2017-03-28 15:55 | HHI.PR ---
Review/Management Diagnosis TIA--stable Plan start aspirin when ok from GI standpoint Diagnosis/Plan: Subjective Subjective Comments No acute events reported No new neurologic sx Active Medications Current Medications Medications (Trade) Dose Ordered Sig/Balta Route Start Time Stop Time Status Last Admin (NS Flush) 2 ml UNSCH PRN IV FLUSH 03/23/17 20:00 (NS Flush) 2 ml BID IV FLUSH 03/23/17 21:00 03/28/17 08:38 (Tylenol) 650 mg Q4H PRN PO 03/23/17 20:00 (Zofran Inj) 4 mg Q6H PRN IVP 03/23/17 20:00 (Narcan Inj) 0.4 mg UNSCH PRN IV 03/23/17 20:00 (Milk Of Magnesia Liq) 30 ml Q12H PRN PO 03/23/17 20:00 (Colace) 100 mg BID PO 03/23/17 21:00 03/25/17 22:21 (Synthroid) 75 mcg DAILY@06 PO 03/24/17 06:00 03/28/17 06:19 (Ativan) 0.5 mg Q8H PRN PO 03/23/17 20:00 03/26/17 10:59 (Ferrous Sulfate) 325 mg BIDAC PO 03/23/17 20:15 03/28/17 06:19 (Protonix Inj) 40 mg Q24H IV PUSH 03/24/17 08:00 03/28/17 08:37 (NS Flush) 2 ml BID IV FLUSH 03/27/17 21:00 03/28/17 08:38 (NS Flush) 2 ml UNSCH PRN IV FLUSH 03/27/17 10:15 (NovoLOG SUPPLEMENTAL SCALE) 1 ACHS SQ 03/27/17 11:00 (D50w (Vial) Inj) 50 ml UNSCH PRN IV PUSH 03/27/17 10:15 (Glucagon Inj) 1 mg UNSCH PRN OTHER 03/27/17 10:15 (Nitrostat Sl) 0.4 mg Q5M PRN SL 03/27/17 18:00 Allergies Allergies Coded Allergies No Known Allergies ([id number]/30/14) Exam I&O / VS 03/27/17 03/27/17 03/28/17 15:00 23:00 07:00 Intake Total 706 ml 206 ml 40 ml Balance 706 ml 206 ml 40 ml Intake Oral 120 ml 40 ml IV Total 706 ml 86 ml 0 ml # Voids 7 2 3 # Bowel Movements 5 0 0 Vital Signs Date Time Temp Pulse Resp B/P Pulse Ox O2 Delivery O2 Flow Rate FiO2 03/28/17 14:00 82 03/28/17 12:00 86 03/28/17 12:00 97.8 82 18 115/59 96 03/28/17 10:00 80 03/28/17 09:09 97 21 03/28/17 08:00 79 03/28/17 08:00 98.7 79 19 125/69 96 03/28/17 07:00 96 Room Air 03/28/17 06:00 78 03/28/17 04:00 98.1 76 18 126/66 97 03/28/17 04:00 76 03/28/17 02:00 86 03/28/17 00:00 85 03/28/17 00:00 98.1 85 12 104/51 97 03/27/17 22:00 90 03/27/17 21:15 97 Nasal Cannula 2.00 03/27/17 20:00 92 03/27/17 20:00 97.9 92 18 103/72 99 03/27/17 19:00 95 Room Air 03/27/17 18:00 100 03/27/17 18:00 97.9 103 20 119/69 96 03/27/17 16:00 103 Exam Comments alert, speech is normal CN 2-12 normal. Motor 5/5 BUE and BLE Objective Micro and Labs Laboratory Tests Test 03/27/17 03/27/17 03/28/17 18:42 22:41 04:06 Potassium Level 3.7 3.7 Total Creatine Kinase 34 29 Troponin I 0.06 0.06 White Blood Count 2.9 Red Blood Count 2.95 Hemoglobin 9.0 Hematocrit 26.8 Mean Corpuscular Volume 90.9 Mean Corpuscular Hemoglobin 30.5 Mean Corpuscular Hemoglobin 33.5 Concent Red Cell Distribution Width 26.7 Platelet Count 68 Mean Platelet Volume 8.8 Neutrophils (%) (Auto) 38.4 Lymphocytes (%) (Auto) 49.6 Monocytes (%) (Auto) 9.5 Eosinophils (%) (Auto) 2.0 Basophils (%) (Auto) 0.5 Neutrophils # (Auto) 1.1 Lymphocytes # (Auto) 1.4 Monocytes # (Auto) 0.3 Eosinophils # (Auto) 0.1 Basophils # (Auto) 0.0 CBC Comment AUTO DIFF Differential Comment AUTO DIFF CONFIRMED Platelet Estimate LOW Platelet Morphology Comment NORMAL Ovalocytes 1+ Sodium Level 143 Chloride Level 116 Carbon Dioxide Level 17.6 Anion Gap 9 Blood Urea Nitrogen 15 Creatinine 2.13 Estimat Glomerular Filtration 22 Rate Random Glucose 88 Calcium Level 7.5 Magnesium Level 1.6 Triglycerides Level 141 Cholesterol Level 139 LDL Cholesterol 83 HDL Cholesterol 28.2 Cholesterol/HDL Ratio 4.92 Diagnostic Tests carotid US--no significant stenosis ECHO--normal Raad Figueroa PhD Mar 28, 2017 15:54
--- NOTE | 2017-03-28 16:31 | HHI.GIFU ---
Subjective Remarks patient is resting in bed, not voicing any Gi complaints, no melena or hematochezia. Not interested in doing Colonoscopy at this time stating she has enough going on. (Zaid Leon) Objective Vitals I&O Vital Signs Date Time Temp Pulse Resp B/P Pulse Ox O2 Delivery O2 Flow Rate FiO2 03/28/17 14:00 82 03/28/17 12:00 86 03/28/17 12:00 97.8 82 18 115/59 96 03/28/17 10:00 80 03/28/17 09:09 97 21 03/28/17 08:00 79 03/28/17 08:00 98.7 79 19 125/69 96 03/28/17 07:00 96 Room Air 03/28/17 06:00 78 03/28/17 04:00 98.1 76 18 126/66 97 03/28/17 04:00 76 03/28/17 02:00 86 03/28/17 00:00 85 03/28/17 00:00 98.1 85 12 104/51 97 03/27/17 22:00 90 03/27/17 21:15 97 Nasal Cannula 2.00 03/27/17 20:00 92 03/27/17 20:00 97.9 92 18 103/72 99 03/27/17 19:00 95 Room Air 03/27/17 18:00 100 03/27/17 18:00 97.9 103 20 119/69 96 I/O 03/27/17 03/27/17 03/27/17 03/28/17 03/28/17 03/28/17 07:00 15:00 23:00 07:00 15:00 23:00 Intake Total 218 ml 706 ml 206 ml 40 ml 240 ml Balance 218 ml 706 ml 206 ml 40 ml 240 ml Intake Oral 120 ml 40 ml 240 ml IV Total 218 ml 706 ml 86 ml 0 ml # Voids 2 7 2 3 3 # Bowel Movements 2 5 0 0 Laboratory Laboratory Tests Test 03/27/17 03/27/17 03/28/17 18:42 22:41 04:06 Potassium Level 3.7 3.7 Total Creatine Kinase 34 29 Troponin I 0.06 0.06 White Blood Count 2.9 Red Blood Count 2.95 Hemoglobin 9.0 Hematocrit 26.8 Mean Corpuscular Volume 90.9 Mean Corpuscular Hemoglobin 30.5 Mean Corpuscular Hemoglobin 33.5 Concent Red Cell Distribution Width 26.7 Platelet Count 68 Mean Platelet Volume 8.8 Neutrophils (%) (Auto) 38.4 Lymphocytes (%) (Auto) 49.6 Monocytes (%) (Auto) 9.5 Eosinophils (%) (Auto) 2.0 Basophils (%) (Auto) 0.5 Neutrophils # (Auto) 1.1 Lymphocytes # (Auto) 1.4 Monocytes # (Auto) 0.3 Eosinophils # (Auto) 0.1 Basophils # (Auto) 0.0 CBC Comment AUTO DIFF Differential Comment AUTO DIFF CONFIRMED Platelet Estimate LOW Platelet Morphology Comment NORMAL Ovalocytes 1+ Sodium Level 143 Chloride Level 116 Carbon Dioxide Level 17.6 Anion Gap 9 Blood Urea Nitrogen 15 Creatinine 2.13 Estimat Glomerular Filtration 22 Rate Random Glucose 88 Calcium Level 7.5 Magnesium Level 1.6 Triglycerides Level 141 Cholesterol Level 139 LDL Cholesterol 83 HDL Cholesterol 28.2 Cholesterol/HDL Ratio 4.92 Imaging Last Impressions Carotid Artery Ultrasound 03/27/17 0000 Signed Impressions: Service Date/Time: Monday, March 27, 2017 10:25 - CONCLUSION: 1. Mild calcified plaque in the carotid bulbs bilaterally without hemodynamically significant flow-limiting stenosis. 2. Antegrade vertebral artery flow bilaterally. Humza Cooney MD Head CT 03/26/17 0000 Signed Impressions: Service Date/Time: March 22:15 - CONCLUSION: Stable brain appearance. No acute intracranial findings. Findings were reported to the patient's nurse Anabela upon interpretation. Rayshawn Reardon MD Chest X-Ray 03/23/17 1948 Signed Impressions: Service Date/Time: Thursday, March 23, 2017 20:06 - CONCLUSION: No evidence of acute cardiopulmonary disease. Rayshawn Barksdale MD Abdomen X-Ray 03/23/17 1729 Signed Impressions: Service Date/Time: Thursday, March 23, 2017 17:52 - CONCLUSION: 1. Benign-appearing abdomen. 2. Osteopenia of the visualized osseous structures. Age-indeterminate compression fracture of L4. Previous kyphoplasty of T12. Rayshawn Barksdale MD Physical Exam HEENT: EOMI; normocephalic; atraumatic; no jaundice. CHEST: CTA CARDIAC: RRR ABDOMEN: Soft, nondistended, nontender; no hepatosplenomegaly; bowel sounds are present in all four quadrants. EXTREMITIES: No clubbing, cyanosis, or edema. SKIN: Normal; no rash; no jaundice. SIDE LASTER STAPLE: Alert, oriented (Zaid Leon) Assessment and Plan Plan ASSESSMENT - melena - report of recent Hemoccult pos result. S/P EGD on (04/24/17) ---> hiatal hernia, and nodular stomach Per RN no more black stools. patient is refusing Colonoscopy , stating she has enough going on pt had acute TIA and moved to [facility] - anemia - Hgb 6.0 on admission. Currently 9.0, stable PLAN - JEIMY - Patient is refusing colonoscopy, this could be done as an OP - monitor HH - transfuse if needed - Gi will sign off, reconsult as needed This pt seen by myself and Dr Zamora and this note is written on his behalf. (Zaid Leon) Physician Comments Patient seen and examined Agree with above Continue with current supportive care Monitor labs We will sign off reconsult if needed (Bertrand Zamora MD) Zaid Leon Mar 28, 2017 16:31 Bertrand Zamora MD Mar 28, 2017 19:36
--- NOTE | 2017-03-28 17:19 | HHI.PR ---
Subjective Remarks no new complaints. Pt denies any limb weakness. NO facial droop. No difficulty with speech, swallow, or word recall. Objective Vitals Vital Signs Date Time Temp Pulse Resp B/P Pulse Ox O2 Delivery O2 Flow Rate FiO2 03/28/17 14:00 82 03/28/17 12:00 86 03/28/17 12:00 97.8 82 18 115/59 96 03/28/17 10:00 80 03/28/17 09:09 97 21 03/28/17 08:00 79 03/28/17 08:00 98.7 79 19 125/69 96 03/28/17 07:00 96 Room Air 03/28/17 06:00 78 03/28/17 04:00 98.1 76 18 126/66 97 03/28/17 04:00 76 03/28/17 02:00 86 03/28/17 00:00 85 03/28/17 00:00 98.1 85 12 104/51 97 03/27/17 22:00 90 03/27/17 21:15 97 Nasal Cannula 2.00 03/27/17 20:00 92 03/27/17 20:00 97.9 92 18 103/72 99 03/27/17 19:00 95 Room Air 03/27/17 18:00 100 03/27/17 18:00 97.9 103 20 119/69 96 03/27/17 03/27/17 03/28/17 14:59 22:59 06:59 Intake Total 706 ml 206 ml 40 ml Balance 706 ml 206 ml 40 ml Intake Oral 120 ml 40 ml IV Total 706 ml 86 ml 0 ml # Voids 7 2 3 # Bowel Movements 5 0 0 Result Diagram: 03/28/17 0406 03/28/17 0406 Imaging Last Impressions Carotid Artery Ultrasound 03/27/17 0000 Signed Impressions: Service Date/Time: Monday, March 27, 2017 10:25 - CONCLUSION: 1. Mild calcified plaque in the carotid bulbs bilaterally without hemodynamically significant flow-limiting stenosis. 2. Antegrade vertebral artery flow bilaterally. Humza Cooney MD Head CT 03/26/17 0000 Signed Impressions: Service Date/Time: March 22:15 - CONCLUSION: Stable brain appearance. No acute intracranial findings. Findings were reported to the patient's nurse Anabela upon interpretation. Rayshawn Reardon MD Chest X-Ray 03/23/17 1948 Signed Impressions: Service Date/Time: Thursday, March 23, 2017 20:06 - CONCLUSION: No evidence of acute cardiopulmonary disease. Rayshawn Barksdale MD Abdomen X-Ray 03/23/17 1729 Signed Impressions: Service Date/Time: Thursday, March 23, 2017 17:52 - CONCLUSION: 1. Benign-appearing abdomen. 2. Osteopenia of the visualized osseous structures. Age-indeterminate compression fracture of L4. Previous kyphoplasty of T12. Rayshawn Barksdale MD Objective Remarks General: NAD, Awake and alert, a bit confused, but answers ?s appropriately and moves all ext to command right facial droop noted with slight slurring of speech Chest: CTA Cardiac: Regular Abd: +BS, soft ND/NT Ext: strength 5/5 x 4 A/P Problem List: (1) CVA (cerebral infarction) Status: Chronic Plan: - comgmt with Neurology - Pt appears to have suffered new TIA - CT brain (03/26/17) --> NO acute findings - carotid US (03/27/17) --> NO hemodynamically significant stenosis - echocardiogram --> pending - LDL 83 (03/28/17) - start lipitor 20mg qPM, 03/29 - 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 Pt would be a poor coumadin candidate additionally pt undergoing GIB w/u. Neurology recommended against anticoagulation at this time. I will discuss this further with neurology prior to pt discharge. (2) Altered mental status, unspecified Status: Acute Plan: - Pt is a 76 y/o with hypertension, hx of CVA, and hypothyroidism who presented to the ED at [facility] on 03/23/17 for evaluation of altered mental status and anemia. - Pt had outpt labs on 03/20/17 which noted a hemoglobin of 5.2. Pt also noted to be in ARF with Cr 3.44. - Outpt records from 08/2016 pt was noted to have Cr. 1.36 and Hgb 14. - In review of the records, the pt was recently admitted to [facility] from to 03/02/17 for AMS, acute renal failure, Coumadin toxicity and anemia. She was reportedly having hematuria at that time which resolved once her INR improved. She was found to have an E. coli UTI which was treated with Rocephin and then oral Cipro. Pt was initiated on FeSO4 for her anemia. It was also noted that the pts mentation improved with correction of her acute renal failure. - On 03/20/17 the patient has been seen by Dr. Diallo and according to the outpt notes the pt had been having intermittent N/V but no reported hematemesis or coffee-ground emesis. Pt was also noted to be Hemoccult positive. She was planned to undergo evaluation with EGD/colonoscopy and was ordered for a blood transfusion. - It appears that she has been taken off the Coumadin as this was not on her admission Med Rec and not listed in outpt medication list in [facility] EHR. - Pt has been transfused with 2 units PRBCs with improvement in H/H - H/H is currently stable. - GI is consulted for evaluation of anemia and GIB. - Pt underwent evaluation with EGD on 03/25/17 which noted gastritis - Pt had been planned for colonoscopy, but then she refused to complete the GoLytely prep. - Pt then had facial droop and was transferred to the ICU for closer observation - Overall, pt's sensorium is much improved from admission. - I believe that the pt's AMS on admission was d/t ARF and possibly anemia - Head CT w/o contrast (03/24/17) --> Old area of infarct in the watershed distribution between the right frontal and parietal cortex. No acute abnormality seen. - Pt is a 76 y/o with hypertension, hx of CVA, and hypothyroidism who presented to the ED at [facility] on 03/23/17 for evaluation of altered mental status and anemia. - EGD (03/26/17) --> gastritis - Colonoscopy once stable - DVT prophylaxis with SCDs (3) GI bleed Status: Acute Plan: - See above. - s/p transfusion of 2 units PRBCs - hg stable (4) ARF (acute renal failure) Status: Acute Plan: - improved from admission - Cr 3.44 (03/23/17), Cr 2.13 (03/28/17) - Cr was 1.3 08/2006 - new baseline? - repeat BMP in AM - will likely have pt f/u with Nephrology outpt (5) Generalized weakness Status: Acute Plan: - PT - Pt requesting SNF upon discharge - anticipate d/c to SNF 03/29 Problem Qualifiers (1) GI bleed: Qualified Code: K92.2 - Gastrointestinal hemorrhage, unspecified gastrointestinal hemorrhage type (2) ARF (acute renal failure): Qualified Code: N17.9 - Acute renal failure, unspecified acute renal failure type Jeerd Montes De Oca DO Mar 28, 2017 17:19
[2017-03-29] VITALS (9 sets, daily range): BP systolic 116–137; BP diastolic 60–73; PULSE 80–98; RESP 16–20; TEMP 96–96.9; O2SAT 96–100
[2017-03-29] MEDS: INSULIN ASPART SUPPLEMENTAL SCALE SQ SCH ×4 (06:41→20:42)
[2017-03-29] MEDS: FERROUS SULFATE 325 MG (65 MG ELEMENTAL IRON) TAB PO SCH ×2 (06:43→17:12)
[2017-03-29] MEDS: LEVOTHYROXINE SODIUM 75 MCG TAB PO SCH (06:43)
[2017-03-29 08:49] LABS: AUTOMATED NEUTROPHIL # 1.3 TH/MM3 (1.8-7.7); BASOPHIL % 0.6 % (0.0-2.0); EOSINOPHIL % 1.4 % (0.0-4.0); HEMATOCRIT 29.7 % (35.0-46.0); LYMPHOCYTE # 1.5 TH/MM3 (1.0-4.8); MEAN CORPUSCULAR HEMOGLOBIN 29.4 PG (27.0-34.0); MEAN CORPUSCULAR HGB CONC 31.6 % (32.0-36.0); MONO % 8.9 % (0.0-8.0); NEUT % 42.1 % (16.0-70.0); PLATELET COUNT 77 TH/MM3 (150-450); RED BLOOD COUNT 3.19 MIL/MM3 (4.00-5.30); RED CELL DISTRIBUTION WIDTH 26.5 % (11.6-17.2); WHITE BLOOD COUNT 3.2 TH/MM3 (4.0-11.0)
[2017-03-29 08:52] LABS: HEMO FLAGS AUTO DIFF
[2017-03-29 09:17] LABS: BICARBONATE 17.7 MEQ/L (21.0-32.0); MAGNESIUM 1.7 MG/DL (1.5-2.5); POTASSIUM 3.9 MEQ/L (3.5-5.1)
[2017-03-29 09:33] LABS: CALCIUM-PROTEIN CORRECTED 8.5 MG/DL (8.5-10.1)
[2017-03-29] MEDS: ASPIRIN 325 MG TAB PO SCH (10:03)
[2017-03-29] MEDS: PANTOPRAZOLE SODIUM 40 MG VIAL IV PUSH SCH (10:03)
[2017-03-29] MEDS: DOCUSATE SODIUM 100 MG CAP PO SCH ×2 (10:03→20:42)
[2017-03-29] MEDS: SODIUM CHLORIDE 0.9% FLUSH 5 ML FLUSH IV FLUSH SCH ×2 (10:04→20:43)
[2017-03-29] MEDS: SODIUM CHLORIDE 0.9% FLUSH 10 ML FLUSH IV FLUSH PRN ×2 (10:04→20:43)
[2017-03-29] MEDS: SODIUM CHLORIDE 0.9% FLUSH 10 ML FLUSH IV FLUSH SCH ×2 (10:04→20:43)
--- NOTE | 2017-03-29 10:04 | EKG ---
Date Performed: 03/27/2017 Time Performed: 17:41:21 PTAGE: 76 years EKG: Sinus rhythm RIGHT BUNDLE BRANCH BLOCK LEFT ANTERIOR FASCICULAR BLOCK POSSIBLE ANTERIOR MYOCARDIAL INFARCTION , P ROBABLY OLD ABNORMAL ECG PREVIOUS TRACING : 03/26/2017 21.45 DOCTOR: Matthew Palomo Interpretating Date/Time 03/29/2017 09:51:35
[2017-03-29 10:23] LABS: OVALOCYTES 1+ (NORMAL); PLATELET ESTIMATE SMEAR LOW (NORMAL); PLATELET MORPHOLOGY NORMAL (NORMAL); SCAN/DIFF AUTO DIFF CONFIRMED
[2017-03-29] MEDS ORDERED: guaiFENesin/DEXTROMETHORPHAN 200 MG/20 MG/10 ML CUP PO PRN (12:30)
--- NOTE | 2017-03-29 12:59 | HHI.PR ---
Subjective Remarks Pt c/o occasional cough. No fever. Objective Vitals Vital Signs Date Time Temp Pulse Resp B/P Pulse Ox O2 Delivery O2 Flow Rate FiO2 03/29/17 12:23 96.4 84 20 121/67 99 03/29/17 08:52 98 21 03/29/17 08:41 96.8 92 20 122/71 98 03/29/17 04:00 96.0 81 16 118/61 97 03/29/17 00:00 96.9 88 16 120/60 98 03/28/17 20:45 97.1 93 16 125/62 98 03/28/17 19:00 99 Nasal Cannula 2.00 03/28/17 18:00 92 03/28/17 16:00 97.7 88 22 134/63 98 03/28/17 16:00 86 03/28/17 14:00 82 03/28/17 03/28/17 03/29/17 15:00 23:00 07:00 Intake Total 240 ml 240 ml 120 ml Output Total 150 ml Balance 240 ml 240 ml -30 ml Intake Oral 240 ml 240 ml 120 ml Output Urine Total 150 ml # Voids 3 101 1 Result Diagram: 03/29/17 0800 03/29/17 0800 Imaging Last Impressions Carotid Artery Ultrasound 03/27/17 0000 Signed Impressions: Service Date/Time: Monday, March 27, 2017 10:25 - CONCLUSION: 1. Mild calcified plaque in the carotid bulbs bilaterally without hemodynamically significant flow-limiting stenosis. 2. Antegrade vertebral artery flow bilaterally. Humza Cooney MD Head CT 03/26/17 0000 Signed Impressions: Service Date/Time: March 22:15 - CONCLUSION: Stable brain appearance. No acute intracranial findings. Findings were reported to the patient's nurse Anabela upon interpretation. Rayshawn Reardon MD Chest X-Ray 03/23/17 1948 Signed Impressions: Service Date/Time: Thursday, March 23, 2017 20:06 - CONCLUSION: No evidence of acute cardiopulmonary disease. Rayshawn Barksdale MD Abdomen X-Ray 03/23/17 9819 Signed Impressions: Service Date/Time: Thursday, March 23, 2017 17:52 - CONCLUSION: 1. Benign-appearing abdomen. 2. Osteopenia of the visualized osseous structures. Age-indeterminate compression fracture of L4. Previous kyphoplasty of T12. Rayshawn Barksdale MD Objective Remarks General: NAD, Chest: CTA Cardiac: Regular Abd: +BS, soft ND/NT Ext: strength 5/5 x 4 Neuro: no focal deficits, muscle strength is intact and symmetrical at both upper and lower extremities. Pt does have global weakness limiting ambulation. CN 2-12 are grossly intact. 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 Pt would be a poor coumadin candidate additionally pt undergoing GIB w/u. Neurology recommended against anticoagulation at this time. I will discuss this further with neurology prior to pt discharge. (2) Altered mental status, unspecified Status: Acute Plan: - Pt is a 76 y/o with hypertension, hx of CVA, and hypothyroidism who presented to the ED at [facility] on 03/23/17 for evaluation of altered mental status and anemia. - Pt had outpt labs on 03/20/17 which noted a hemoglobin of 5.2. Pt also noted to be in ARF with Cr 3.44. - Outpt records from 08/2016 pt was noted to have Cr. 1.36 and Hgb 14. - In review of the records, the pt was recently admitted to [facility] from to 03/02/17 for AMS, acute renal failure, Coumadin toxicity and anemia. She was reportedly having hematuria at that time which resolved once her INR improved. She was found to have an E. coli UTI which was treated with Rocephin and then oral Cipro. Pt was initiated on FeSO4 for her anemia. It was also noted that the pts mentation improved with correction of her acute renal failure. - On 03/20/17 the patient has been seen by Dr. Diallo and according to the outpt notes the pt had been having intermittent N/V but no reported hematemesis or coffee-ground emesis. Pt was also noted to be Hemoccult positive. She was planned to undergo evaluation with EGD/colonoscopy and was ordered for a blood transfusion. - It appears that she has been taken off the Coumadin as this was not on her admission Med Rec and not listed in outpt medication list in [facility] EHR. - Pt has been transfused with 2 units PRBCs with improvement in H/H - H/H is currently stable. - GI is consulted for evaluation of anemia and GIB. - Pt underwent evaluation with EGD on 03/25/17 which noted gastritis - Pt had been planned for colonoscopy, but then she refused to complete the GoLytely prep. - Pt then had facial droop and was transferred to the ICU for closer observation - Overall, pt's sensorium is much improved from admission. - I believe that the pt's AMS on admission was d/t ARF and possibly anemia - Pt [facility] floor and without neurologic deficits - Head CT w/o contrast (03/24/17) --> Old area of infarct in the watershed distribution between the right frontal and parietal cortex. No acute abnormality seen. - Pt is a 76 y/o with hypertension, hx of CVA, and hypothyroidism who presented to the ED at [facility] on 03/23/17 for evaluation of altered mental status and anemia. - EGD (03/26/17) --> gastritis - Colonoscopy once stable - DVT prophylaxis with SCDs (3) GI bleed Status: Acute Plan: - See above. - s/p transfusion of 2 units PRBCs - hg stable - WBC low - platelet count low - drug related? bone marrow? - request Hematology consultation/review prior to discharge (4) ARF (acute renal failure) Status: Acute Plan: - improved from admission - Cr 3.44 (03/23/17), Cr 2.13 (03/28/17), 2.17 (03/29/17) - Cr was 1.3 08/2006 - new baseline? - obtain Renal US - will likely have pt f/u with Nephrology outpt (5) Generalized weakness Status: Acute Plan: - PT - Pt requesting SNF upon discharge - anticipate d/c to SNF in next few days (6) Cough Status: Acute Plan: - requiring 2 L NC - obtain CXR - duoneb prn Problem Qualifiers (1) GI bleed: Qualified Code: K92.2 - Gastrointestinal hemorrhage, unspecified gastrointestinal hemorrhage type (2) ARF (acute renal failure): Qualified Code: N17.9 - Acute renal failure, unspecified acute renal failure type Jered Montes De Oca DO Mar 29, 2017 12:58
[2017-03-29] MEDS ORDERED: RESP: ALBUTEROL 2.5 MG/IPRATROPIUM 0.5 MG NEB (PRN) NEB (13:15)
--- NOTE | 2017-03-29 14:19 | RADRPT ---
EXAM DATE/TIME: 03/29/2017 13:11 [facility] COMPARISON: No previous studies available for comparison. INDICATIONS : Increased BUN and creatinine. MEDICAL HISTORY : Hypothyroidism. Hypertension. Hypercholesterolemia. GERD. Shingles. CVA. Hyperlipidemia. Chronic kidn ey disease stage 3. Thoracic lumbar compression fracture. SURGICAL HISTORY : Kyphoplasty. ENCOUNTER: Initial ACUITY: 1 day PAIN SCORE: 5/10 LOCATION: Bilateral flank MEASUREMENTS: RIGHT KIDNEY: 8.3 x 4.0 x 4.5 cm LEFT KIDNEY: 9.4 x 4.8 x 5.2 cm FINDINGS: Both kidneys are small and have cortical thinning and increased parenchymal echogenicity. No focal re nal lesion seen on either side. No hydronephrosis or hydroureter. Urinary bladder is nondistended and grossly unremarkable. CONCLUSION: Small echogenic kidneys with cortical thinning typical of chronic parenchymal disease. No obstructive uropathy or other acute abnormality demonstrated. Rayshawn Barksdale MD on March 29, 2017 at 14:16 Board Certified Radiologist. This report was verified electronically.
--- NOTE | 2017-03-29 14:46 | RADRPT ---
EXAM DATE/TIME: 03/29/2017 14:32 [facility] COMPARISON: CHEST SINGLE AP, March 23, 2017, 20:06. INDICATIONS : Cough. MEDICAL HISTORY : Hypertension. Hypothyroidism. SURGICAL HISTORY : Kyphoplasty. ENCOUNTER: Initial ACUITY: 1 week PAIN SCORE: 0/10 LOCATION: Bilateral chest FINDINGS: PA and lateral views of the chest demonstrate the lungs to be symmetrically aerated without evidence of mass, infiltrate or effusion. The cardiomediastinal contours are unremarkable. Osseous structure s are intact. CONCLUSION: No evidence of acute cardiopulmonary disease. Rayshawn Barksdale MD on March 29, 2017 at 14:44 Board Certified Radiologist. This report was verified electronically.
[2017-03-29] MEDS: ATORVASTATIN 20 MG TAB PO SCH (20:42)
[2017-03-30] VITALS (8 sets, daily range): BP systolic 111–159; BP diastolic 60–89; PULSE 83–118; RESP 18–20; TEMP 96.6–97.8; O2SAT 96–100
--- NOTE | 2017-03-30 06:26 | MB ---
cc: MILE LECHUGA M.D. DATE OF CONSULTATION 03/29/2017 REASON FOR CONSULTATION Consult requested by Dr. Montes De Oca for evaluation of pancytopenia. HISTORY OF PRESENT ILLNESS Nancy is a pleasant 76-year-old female. She is a poor historian. Her history is obtained through the review of the records. The patient was sent from the [facility] due to severe anemia with a hemoglobin of 5.2. She was complaining of dark stools. On admission her CBC showed a white count 5.1, hemoglobin 6, hematocrit was 18.9, MCV was 104.5 and platelet count 150. The patient has received blood transfusion. GI was consulted. The patient underwent upper endoscopy which failed to reveal any significant findings. After the blood transfusion, her hemoglobin remained stable around 9.4. However, both her white cells and the platelet count are coming down. Now she has become pancytopenic and I have been asked to see her for further evaluation. REVIEW OF SYSTEMS The patient is complaining of weakness and fatigue. She is complaining of dark stools. At one point she was on Coumadin which has now been stopped. When she came in she was in acute renal failure with hydration that has improved. The patient's mental status is improving as well. The rest of the review of systems is negative. PAST MEDICAL HISTORY 1. Hypertension. 2. Hypercholesterolemia. 3. Hypothyroidism. 4. Chronic kidney disease. 5. Compression fracture of the lumbar spine. 6. History of CVA. PAST SURGICAL HISTORY Kyphoplasty. ALLERGIES None. MEDICATIONS Please see EMR. FAMILY HISTORY Noncontributory. SOCIAL HISTORY The patient does not smoke cigarettes, does not drink alcohol. PHYSICAL EXAMINATION GENERAL: He is a well-developed, elderly white female in no apparent distress. VITAL SIGNS: Temperature 96.5, heart rate is 98, blood pressure 137/71, O2 saturation 100% on room air. HEENT: PERRLA, EOMI, anicteric. No oral lesions are noted. NECK: Supple. LYMPHATICS: There is no cervical, supraclavicular or axillary lymphadenopathy noted. LUNGS: Clear. No wheezing, rhonchi or rales. HEART: Regular rate and rhythm. ABDOMEN: Soft, nontender. No hepatosplenomegaly. EXTREMITIES: No pedal edema. NEUROLOGY: Awake, alert, oriented x 2. SKIN: No significant lesions noted. ASSESSMENT Severe anemia on admission and now she has become pancytopenic. The differential is bone marrow suppression from medication or infection versus underlying bone marrow pathology such as myelodysplastic syndrome. PLAN I have reviewed her available records and I have discussed with the patient regarding the cause of the pancytopenia. When she came in she had macrocytic anemia but her B12 was normal at 734 and serum folate was normal at 7.5. The TSH is high at 10.3. The free T4 is also high at 1.56. The patient has a history of hypothyroidism. No iron studies were done and the patient already has received 2 units of blood transfusion. Ordering iron studies at this time would not be helpful since she already had received her blood transfusion and no iron studies were checked before the transfusion. My recommendation is to get the ultrasound of the spleen to make sure that she does not have hypersplenism as a cause of the pancytopenia. If the ultrasound comes back normal and she remains pancytopenic, then I would recommend bone marrow aspirate and biopsy for some underlying bone marrow pathology. Certainly bone marrow biopsy can be done as an outpatient once she is more stable. There is no urgency to do the biopsy right now. Further recommendations based on the hospital stay. Thank you for asking my opinion. MD MARSHA Duke/JEET /1:36 AM /6:20 AM CASSIE
[2017-03-30] MEDS: LEVOTHYROXINE SODIUM 75 MCG TAB PO SCH (06:47)
[2017-03-30] MEDS: FERROUS SULFATE 325 MG (65 MG ELEMENTAL IRON) TAB PO SCH ×2 (06:47→16:33)
[2017-03-30] MEDS: INSULIN ASPART SUPPLEMENTAL SCALE SQ SCH ×4 (06:50→21:00)
[2017-03-30 08:14] LABS: AUTOMATED NEUTROPHIL # 1.4 TH/MM3 (1.8-7.7); BASOPHIL % 0.2 % (0.0-2.0); EOSINOPHIL % 1.6 % (0.0-4.0); HEMATOCRIT 28.1 % (35.0-46.0); LYMPH % 42.7 % (9.0-44.0); LYMPHOCYTE # 1.3 TH/MM3 (1.0-4.8); MEAN CELL VOLUME 90.7 FL (80.0-100.0); MEAN CORPUSCULAR HEMOGLOBIN 30.2 PG (27.0-34.0); MEAN CORPUSCULAR HGB CONC 33.4 % (32.0-36.0); MONO % 9.2 % (0.0-8.0); NEUT % 46.3 % (16.0-70.0); PLATELET COUNT 78 TH/MM3 (150-450); RED CELL DISTRIBUTION WIDTH 26.6 % (11.6-17.2); WHITE BLOOD COUNT 3.1 TH/MM3 (4.0-11.0)
[2017-03-30 08:26] LABS: HEMO FLAGS AUTO DIFF
[2017-03-30] MEDS: PANTOPRAZOLE SODIUM 40 MG VIAL IV PUSH SCH (08:33)
[2017-03-30] MEDS: SODIUM CHLORIDE 0.9% FLUSH 10 ML FLUSH IV FLUSH SCH ×2 (08:34→21:06)
[2017-03-30] MEDS: SODIUM CHLORIDE 0.9% FLUSH 5 ML FLUSH IV FLUSH SCH ×2 (08:34→21:00)
[2017-03-30] MEDS: DOCUSATE SODIUM 100 MG CAP PO SCH ×2 (08:38→21:04)
[2017-03-30 08:47] LABS: BICARBONATE 19.1 MEQ/L (21.0-32.0); MAGNESIUM 1.7 MG/DL (1.5-2.5); POTASSIUM 3.6 MEQ/L (3.5-5.1)
[2017-03-30 09:06] LABS: KERATOCYTES OCC (NORMAL); OVALOCYTES 1+ (NORMAL); PLATELET ESTIMATE SMEAR LOW (NORMAL); PLATELET MORPHOLOGY ENLARGED (NORMAL); SCAN/DIFF AUTO DIFF CONFIRMED
--- NOTE | 2017-03-30 09:07 | HHI.PR ---
Subjective Remarks wants to go home not interested in procedures at this time. Objective Vitals nad heart reg lung cta abd s/nt ext no edema Vital Signs Date Time Temp Pulse Resp B/P Pulse Ox O2 Delivery O2 Flow Rate FiO2 03/30/17 08:05 96 Room Air 21 03/30/17 04:00 96.8 84 19 111/65 96 03/30/17 01:00 96.8 83 18 123/60 100 03/29/17 21:12 96 03/29/17 20:20 80 03/29/17 20:00 Room Air 03/29/17 20:00 96.4 84 19 116/73 97 03/29/17 16:00 96.5 98 20 137/71 100 03/29/17 15:52 100 Room Air 03/29/17 15:09 99 Nasal Cannula 1.00 03/29/17 12:23 96.4 84 20 121/67 99 03/29/17 03/29/17 03/30/17 15:00 23:00 07:00 Intake Total 480 ml 240 ml 120 ml Output Total 50 ml 100 ml 300 ml Balance 430 ml 140 ml -180 ml Intake Oral 480 ml 240 ml 120 ml Output Urine Total 50 ml 100 ml 300 ml # Voids 9 3 3 # Bowel Movements 0 0 Result Diagram: 03/30/17 0710 03/30/17 0710 Imaging Last Impressions Carotid Artery Ultrasound 03/27/17 0000 Signed Impressions: Service Date/Time: Monday, March 27, 2017 10:25 - CONCLUSION: 1. Mild calcified plaque in the carotid bulbs bilaterally without hemodynamically significant flow-limiting stenosis. 2. Antegrade vertebral artery flow bilaterally. Humza Cooney MD Head CT 03/26/17 0000 Signed Impressions: Service Date/Time: March 22:15 - CONCLUSION: Stable brain appearance. No acute intracranial findings. Findings were reported to the patient's nurse Anabela upon interpretation. Rayshawn Reardon MD Chest X-Ray 03/23/171947 Signed Impressions: Service Date/Time: Thursday, March 23, 2017 20:06 - CONCLUSION: No evidence of acute cardiopulmonary disease. Rayshawn Barksdale MD Abdomen X-Ray 03/23/17 0603 Signed Impressions: Service Date/Time: Thursday, March 23, 2017 17:52 - CONCLUSION: 1. Benign-appearing abdomen. 2. Osteopenia of the visualized osseous structures. Age-indeterminate compression fracture of L4. Previous kyphoplasty of T12. Rayshawn Barksdale MD A/P Problem List: (1) Pancytopenia Status: Acute Plan: Pt presented with gib, heme positive stool/melena egd negative for significant pathology s/p 2 units blood refusing c-scope. 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 Pt would be a poor coumadin candidate additionally pt undergoing GIB w/u. Neurology recommended against anticoagulation at this time. back on asa now. Pancytopenia developed. seen by oncology spleen u/s ordered and pending will need to f/u office and further discussion of bm bx as needed. cbc stable today. (2) GI bleed Status: Acute Plan: see above (3) TIA (transient ischemic attack) Status: Acute Plan: see above (4) Altered mental status, unspecified Status: Acute Plan: - Pt is a 76 y/o with hypertension, hx of CVA, and hypothyroidism who presented to the ED at [facility] on 03/23/17 for evaluation of altered mental status and anemia. - Pt had outpt labs on 03/20/17 which noted a hemoglobin of 5.2. Pt also noted to be in ARF with Cr 3.44. - Outpt records from 08/2016 pt was noted to have Cr. 1.36 and Hgb 14. - In review of the records, the pt was recently admitted to [facility] from to 03/02/17 for AMS, acute renal failure, Coumadin toxicity and anemia. She was reportedly having hematuria at that time which resolved once her INR improved. She was found to have an E. coli UTI which was treated with Rocephin and then oral Cipro. Pt was initiated on FeSO4 for her anemia. It was also noted that the pts mentation improved with correction of her acute renal failure. - On 03/20/17 the patient has been seen by Dr. Diallo and according to the outpt notes the pt had been having intermittent N/V but no reported hematemesis or coffee-ground emesis. Pt was also noted to be Hemoccult positive. She was planned to undergo evaluation with EGD/colonoscopy and was ordered for a blood transfusion. - It appears that she has been taken off the Coumadin as this was not on her admission Med Rec and not listed in outpt medication list in [facility] EHR. - Pt has been transfused with 2 units PRBCs with improvement in H/H - H/H is currently stable. - GI is consulted for evaluation of anemia and GIB. - Pt underwent evaluation with EGD on 03/25/17 which noted gastritis - Pt had been planned for colonoscopy, but then she refused to complete the GoLytely prep. - Pt then had facial droop and was transferred to the ICU for closer observation - Overall, pt's sensorium is much improved from admission. - Head CT w/o contrast (03/24/17) --> Old area of infarct in the watershed distribution between the right frontal and parietal cortex. No acute abnormality seen. (5) Generalized weakness Status: Acute Plan: - PT - Pt requesting SNF upon discharge - anticipate d/c to SNF in next few days (6) CKD (chronic kidney disease) stage 4, GFR 15-29 ml/min Status: Chronic Problem Qualifiers (1) GI bleed: Qualified Code: K92.2 - Gastrointestinal hemorrhage, unspecified gastrointestinal hemorrhage type Sebastian Mahmood MD Mar 30, 2017 09:07
[2017-03-30] MEDS ORDERED: ATOR20TA15 PO (09:11)
[2017-03-30] MEDS ORDERED: PROT40TA PO (09:11)
[2017-03-30] MEDS ORDERED: ASPI325T PO (09:11)
--- NOTE | 2017-03-30 09:12 | HHI.FF ---
Face to Face Verification Diagnosis: (1) TIA (transient ischemic attack) (2) Pancytopenia (3) GI bleed (4) CKD (chronic kidney disease) stage 4, GFR 15-29 ml/min (5) Hypothyroidism (6) Generalized weakness Physical Therapy Order: Evaluate and Treat, Improve ambulation Home Health Nursing Order: Medical education Signs/symptoms of disease process Medication education-adverse effect Nursing assessment with vital signs I have seen patient Nancy Ariza on 03/30/17. My clinical findings support the need for the requested home health care services because: Deconditioned w/ increased weakness Limited ability to care for self I certify that my clinical findings support that this patient is homebound because: Unsteady gait/balance Sebastian Mahmood MD Mar 30, 2017 09:12
--- NOTE | 2017-03-30 09:13 | HHI.DCPOC ---
Discharge Care Plan Diagnosis: (1) GI bleed (2) Gastritis (3) TIA (transient ischemic attack) (4) Pancytopenia (5) CKD (chronic kidney disease) stage 4, GFR 15-29 ml/min (6) Hypothyroidism Goals to Promote Your Health * To prevent worsening of your condition and complications * To maintain your health at the optimal level Directions to Meet Your Goals Take your medications as prescribed Follow your dietary instruction Follow activity as directed Keep your appointments as scheduled Take your immunizations and boosters as scheduled If your symptoms worsen call your PCP, if no PCP go to Urgent Care Center or Emergency Room Smoking is Dangerous to Your Health. Avoid second hand smoke Call the 24-hour hour crisis hotline for domestic abuse at Sebastian Mahmood MD Mar 30, 2017 09:12
--- NOTE | 2017-03-30 13:30 | PD.ONC.PN ---
Subjective Subjective Remarks Afebrile overnight. Patient tired of being in the hospital. Discharge order placed today. Patient wanting to go home. Objective Data Date Time Temp Pulse Resp B/P Pulse Ox O2 Delivery O2 Flow Rate FiO2 03/30/17 08:32 88 03/30/17 08:05 96 Room Air 21 03/30/17 07:50 96.6 94 20 159/89 98 03/30/17 04:00 96.8 84 19 111/65 96 03/30/17 01:00 96.8 83 18 123/60 100 03/29/17 21:12 96 03/29/17 20:20 80 03/29/17 20:00 Room Air 03/29/17 20:00 96.4 84 19 116/73 97 03/29/17 16:00 96.5 98 20 137/71 100 03/29/17 15:52 100 Room Air 03/29/17 15:09 99 Nasal Cannula 1.00 Result Diagram: 03/30/17 0710 03/30/17 0710 Laboratory Results Laboratory Tests Test 03/30/17 07:10 White Blood Count 3.1 TH/MM3 Red Blood Count 3.10 MIL/MM3 Hemoglobin 9.4 GM/DL Hematocrit 28.1 % Mean Corpuscular Volume 90.7 FL Mean Corpuscular Hemoglobin 30.2 PG Mean Corpuscular Hemoglobin 33.4 % Concent Red Cell Distribution Width 26.6 % Platelet Count 78 TH/MM3 Mean Platelet Volume 9.5 FL Neutrophils (%) (Auto) 46.3 % Lymphocytes (%) (Auto) 42.7 % Monocytes (%) (Auto) 9.2 % Eosinophils (%) (Auto) 1.6 % Basophils (%) (Auto) 0.2 % Neutrophils # (Auto) 1.4 TH/MM3 Lymphocytes # (Auto) 1.3 TH/MM3 Monocytes # (Auto) 0.3 TH/MM3 Eosinophils # (Auto) 0.0 TH/MM3 Basophils # (Auto) 0.0 TH/MM3 CBC Comment AUTO DIFF Differential Comment AUTO DIFF CONFIRMED Platelet Estimate LOW Platelet Morphology Comment ENLARGED Ovalocytes 1+ Keratocytes OCC Sodium Level 143 MEQ/L Potassium Level 3.6 MEQ/L Chloride Level 113 MEQ/L Carbon Dioxide Level 19.1 MEQ/L Anion Gap 11 MEQ/L Blood Urea Nitrogen 19 MG/DL Creatinine 2.08 MG/DL Estimat Glomerular Filtration 23 ML/MIN Rate Random Glucose 84 MG/DL Calcium Level 8.0 MG/DL Magnesium Level 1.7 MG/DL Administered Medications Medications (Trade) Dose Ordered Sig/Balta Route PRN Reason Start Time Stop Time Status Last Admin Dose Admin Sodium Chloride (NS Flush) 2 ml UNSCH PRN IV FLUSH FLUSH AFTER USING IV ACCESS 03/23/17 20:00 03/29/17 20:43 Sodium Chloride (NS Flush) 2 ml BID IV FLUSH 03/23/17 21:00 03/30/17 08:34 Docusate Sodium (Colace) 100 mg BID PO 03/23/17 21:00 03/29/17 20:42 Levothyroxine Sodium (Synthroid) 75 mcg DAILY@06 PO 03/24/17 06:00 03/30/17 06:47 Lorazepam (Ativan) 0.5 mg Q8H PRN PO ANXIETY AND/OR AGITATION 03/23/17 20:00 03/26/17 10:59 Ferrous Sulfate (Ferrous Sulfate) 325 mg BIDAC PO 03/23/17 20:15 03/30/17 06:47 Pantoprazole Sodium (Protonix Inj) 40 mg Q24H IV PUSH 03/24/17 08:00 03/30/17 08:33 IV Flush (NS Flush) 2 ml BID IV FLUSH 03/27/17 21:00 03/29/17 10:04 Aspirin (Aspirin) 325 mg DAILY PO 03/29/17 09:00 03/29/17 10:03 Atorvastatin Calcium (Lipitor) 20 mg HS PO 03/29/17 21:00 03/29/17 20:42 Objective Remarks GENERAL: Elderly female, lying in bed in nad. SKIN: Warm and dry. HEAD: Normocephalic. EYES: No scleral icterus. No injection or drainage. NECK: Supple, trachea midline. CARDIOVASCULAR: Regular rate and rhythm RESPIRATORY: Breath sounds equal bilaterally. No accessory muscle use. GASTROINTESTINAL: Abdomen mildly distended, soft EXTREMITIES: No cyanosis NEUROLOGICAL: awake and alert, normal speech. Assessment/Plan Problem List: (1) Pancytopenia Status: Acute Plan: 03/30/17: patient being discharged today. will fax fs to new patient referrals for follow up. obtain u/s spleen outpatient if not done before discharged --differential includes bone marrow suppression from medication or infection versus underlying bone marrow pathology such as myelodysplastic syndrome. --u/s spleen pending. Assessment 76y/o female with pancytopenia. --sent from [facility] due to severe anemia --EGD--WNL h/o Hypertension. Hypercholesterolemia. Hypothyroidism. Chronic kidney disease. Compression fracture of the lumbar spine.History of CVA. Attending Statement Anxious to go home Denies any new complaints Ultrasound of the spleen is normal Okay to discharge home Follow up as an outpatient The exam, history, and the medical decision-making described in the above note were completed with the assistance of the mid-level provider. I reviewed and agree with the findings presented. I attest that I had a [id number] encounter with the patient on the same day, and personally performed and documented my assessment and findings in the medical record. Monalisa Andrade Mar 30, 2017 13:30 Qamar Gresham MD Mar 30, 2017 23:59
[2017-03-30] MEDS ORDERED: LORA-392 PO (16:12)
[2017-03-30] MEDS: ASPIRIN 325 MG TAB PO SCH (16:33)
[2017-03-30] MEDS: LORazepam 0.5 MG TAB PO PRN (17:52)
--- NOTE | 2017-03-30 18:04 | RADRPT ---
EXAM DATE/TIME: 03/30/2017 13:44 [place] COMPARISON: US KIDNEY/RENAL/BLADDER, March 29, 2017, 13:11. INDICATIONS : Pancytopenia. MEDICAL HISTORY : Hypercholesterolemia. Hypothyroidism. Gastroesophageal reflux disease. Hyperlipidemia. HTN. CVA. Davis gles. CKD, stage III. Thoracic lumbar compression fracture. SURGICAL HISTORY : Kyphoplasty. ENCOUNTER: Initial ACUITY: 1 day PAIN SCORE: 2/10 LOCATION: Left upper quadrant MEASUREMENTS: SPLEEN: 10.6 cm length FINDINGS: The spleen is normal in size measuring approximately 10.6 cm in length. The left kidney is unremarkable in appearance. CONCLUSION: 1. The spleen is normal in size. Osiel Lacy MD on March 30, 2017 at 18:01 Board Certified Radiologist. This report was verified electronically.
[2017-03-30 20:00] LABS: BACTERIA, URINE MOD /hpf; BLOOD, URINE SMALL (NEG); COMMENT (UR) CULTURE INDICATED; CULTURE IF INDICATED CULTURE INDICATED; GLUCOSE,URINE NEG (NEG); HYALINE CAST, URINE 1 /lpf (RARE); KETONE, URINE NEG (NEG); MUCUS URINE FEW /lpf (OCC); NITRITE,URINE NEG (NEG); PH, URINE 5.5 (5.0-8.5); SQUAMOUS EPITHELIAL CELL URINE 2 /hpf (0-5); TRANSITIONAL EPI CELLS, URINE 2 /hpf; URINE COLOR YELLOW (YELLW/STRAW)
--- NOTE | 2017-03-30 20:54 | HHI.PR ---
Review/Management Diagnosis TIA--stable Plan continue aspirin and statin Diagnosis/Plan: Subjective Subjective Comments No acute events reported now on asa. NO recurrent TIA Active Medications Current Medications Medications (Trade) Dose Ordered Sig/Balta Route Start Time Stop Time Status Last Admin (NS Flush) 2 ml UNSCH PRN IV FLUSH 03/23/17 20:00 03/29/17 20:43 (NS Flush) 2 ml BID IV FLUSH 03/23/17 21:00 03/30/17 08:34 (Tylenol) 650 mg Q4H PRN PO 03/23/17 20:00 (Zofran Inj) 4 mg Q6H PRN IVP 03/23/17 20:00 (Narcan Inj) 0.4 mg UNSCH PRN IV 03/23/17 20:00 (Milk Of Magnesia Liq) 30 ml Q12H PRN PO 03/23/17 20:00 (Colace) 100 mg BID PO 03/23/17 21:00 03/29/17 20:42 (Synthroid) 75 mcg DAILY@06 PO 03/24/17 06:00 03/30/17 06:47 (Ativan) 0.5 mg Q8H PRN PO 03/23/17 20:00 03/30/17 17:52 (Ferrous Sulfate) 325 mg BIDAC PO 03/23/17 20:15 03/30/17 16:33 (Protonix Inj) 40 mg Q24H IV PUSH 03/24/17 08:00 03/30/17 08:33 (NS Flush) 2 ml BID IV FLUSH 03/27/17 21:00 03/29/17 10:04 (NS Flush) 2 ml UNSCH PRN IV FLUSH 03/27/17 10:15 (NovoLOG SUPPLEMENTAL SCALE) 1 ACHS SQ 03/27/17 11:00 (D50w (Vial) Inj) 50 ml UNSCH PRN IV PUSH 03/27/17 10:15 (Glucagon Inj) 1 mg UNSCH PRN OTHER 03/27/17 10:15 (Nitrostat Sl) 0.4 mg Q5M PRN SL 03/27/17 18:00 (Aspirin) 325 mg DAILY PO 03/29/17 09:00 03/30/17 16:33 (Lipitor) 20 mg HS PO 03/29/17 21:00 03/29/17 20:42 (Robitussin Dm 200-20 Mg/10 ml Liq) 10 ml Q6H PRN PO 03/29/17 12:30 Allergies Allergies Coded Allergies No Known Allergies ([id number]/14) Exam I&O / VS 03/29/17 03/29/17 03/30/17 15:00 23:00 07:00 Intake Total 480 ml 240 ml 120 ml Output Total 50 ml 100 ml 300 ml Balance 430 ml 140 ml -180 ml Intake Oral 480 ml 240 ml 120 ml Output Urine Total 50 ml 100 ml 300 ml # Voids 9 3 3 # Bowel Movements 0 0 Vital Signs Date Time Temp Pulse Resp B/P Pulse Ox O2 Delivery O2 Flow Rate FiO2 03/30/17 20:00 96.8 102 18 124/74 98 03/30/17 15:50 96.9 118 20 139/78 98 03/30/17 11:50 97.8 113 20 128/78 99 03/30/17 08:32 88 03/30/17 08:05 96 Room Air 21 03/30/17 07:50 96.6 94 20 159/89 98 03/30/17 04:00 96.8 84 19 111/65 96 03/30/17 01:00 96.8 83 18 123/60 100 03/29/17 21:12 96 Exam Comments alert, speech is normal CN 2-12 normal. Motor 5/5 BUE and BLE Objective Micro and Labs Laboratory Tests Test 03/30/17 03/30/17 07:10 17:15 White Blood Count 3.1 Red Blood Count 3.10 Hemoglobin 9.4 Hematocrit 28.1 Mean Corpuscular Volume 90.7 Mean Corpuscular Hemoglobin 30.2 Mean Corpuscular Hemoglobin 33.4 Concent Red Cell Distribution Width 26.6 Platelet Count 78 Mean Platelet Volume 9.5 Neutrophils (%) (Auto) 46.3 Lymphocytes (%) (Auto) 42.7 Monocytes (%) (Auto) 9.2 Eosinophils (%) (Auto) 1.6 Basophils (%) (Auto) 0.2 Neutrophils # (Auto) 1.4 Lymphocytes # (Auto) 1.3 Monocytes # (Auto) 0.3 Eosinophils # (Auto) 0.0 Basophils # (Auto) 0.0 CBC Comment AUTO DIFF Differential Comment AUTO DIFF CONFIRMED Platelet Estimate LOW Platelet Morphology Comment ENLARGED Ovalocytes 1+ Keratocytes OCC Sodium Level 143 Potassium Level 3.6 Chloride Level 113 Carbon Dioxide Level 19.1 Anion Gap 11 Blood Urea Nitrogen 19 Creatinine 2.08 Estimat Glomerular Filtration 23 Rate Random Glucose 84 Calcium Level 8.0 Magnesium Level 1.7 Urine Color YELLOW Urine Turbidity HAZY Urine pH 5.5 Urine Specific [place] 1.015 Urine Protein 100 Urine Glucose (UA) NEG Urine Ketones NEG Urine Occult Blood SMALL Urine Nitrite NEG Urine Bilirubin NEG Urine Urobilinogen LESS THAN 2.0 Urine Leukocyte Esterase SMALL Urine RBC 2 Urine WBC 10 Urine Squamous Epithelial 2 Cells Urine Transitional Epithelial 2 Cells Urine Amorphous Sediment RARE Urine Bacteria MOD Urine Hyaline Casts 1 Urine Mucus FEW Microscopic Urinalysis Comment CULTURE INDICATED Date/Time Procedure Status Source Growth 03/30/17 17:15 Urine Culture Received Urine Random Urine Pending Raad Figueroa PhD Mar 30, 2017 20:53
[2017-03-30] MEDS: ATORVASTATIN 20 MG TAB PO SCH (21:04)
[2017-03-30] MEDS: SODIUM CHLORIDE 0.9% FLUSH 10 ML FLUSH IV FLUSH PRN (21:06)
[2017-03-31] VITALS: BP 122/74; PULSE 96; RESP 18; TEMP 96.7; O2SAT 98
[2017-03-31 04:00] VITALS: BP 140/63; PULSE 95; RESP 18; TEMP 96.9; O2SAT 98
[2017-03-31] MEDS: FERROUS SULFATE 325 MG (65 MG ELEMENTAL IRON) TAB PO SCH ×2 (05:31→17:16)
[2017-03-31] MEDS: LEVOTHYROXINE SODIUM 75 MCG TAB PO SCH (05:31)
[2017-03-31] MEDS: INSULIN ASPART SUPPLEMENTAL SCALE SQ SCH ×3 (05:33→17:17)
[2017-03-31] MEDS ORDERED: cefTRIAXone INJ 1,000 MG in SODIUM CHLORIDE 0.9% INJ 100 ML IV SCH (07:00)
[2017-03-31 08:00] VITALS: BP 132/72; PULSE 91; RESP 20; TEMP 96.8; O2SAT 98
[2017-03-31 08:05] VITALS: PULSE 92
--- NOTE | 2017-03-31 08:35 | HHI.PR ---
Subjective Remarks denies urinary sxs no f/c. no n/v Objective Vitals heart reg lungt cta abd s/nt ext no edema Vital Signs Date Time Temp Pulse Resp B/P Pulse Ox O2 Delivery O2 Flow Rate FiO2 03/31/17 04:00 96.9 95 18 140/63 98 03/31/17 00:00 96.7 96 18 122/74 98 03/30/17 21:00 Room Air 03/30/17 20:07 102 03/30/17 20:00 96.8 102 18 124/74 98 03/30/17 15:50 96.9 118 20 139/78 98 03/30/17 11:50 97.8 113 20 128/78 99 03/30/17 03/30/17 03/31/17 15:00 23:00 07:00 Intake Total 220 ml Output Total 100 ml 100 ml Balance 220 ml -100 ml -100 ml Intake Oral 220 ml Output Urine Total 100 ml 100 ml # Voids 12 1 # Bowel Movements 0 Result Diagram: 03/30/17 0710 03/30/17 0710 Imaging Last Impressions Carotid Artery Ultrasound 03/27/17 0000 Signed Impressions: Service Date/Time: Monday, March 27, 2017 10:25 - CONCLUSION: 1. Mild calcified plaque in the carotid bulbs bilaterally without hemodynamically significant flow-limiting stenosis. 2. Antegrade vertebral artery flow bilaterally. Humza Cooney MD Head CT 03/26/17 0000 Signed Impressions: Service Date/Time: March 22:15 - CONCLUSION: Stable brain appearance. No acute intracranial findings. Findings were reported to the patient's nurse Anabela upon interpretation. Rayshawn Reardon MD Chest X-Ray 03/23/171947 Signed Impressions: Service Date/Time: Thursday, March 23, 2017 20:06 - CONCLUSION: No evidence of acute cardiopulmonary disease. Rayshawn Barksdale MD Abdomen X-Ray 03/23/17 3389 Signed Impressions: Service Date/Time: Thursday, March 23, 2017 17:52 - CONCLUSION: 1. Benign-appearing abdomen. 2. Osteopenia of the visualized osseous structures. Age-indeterminate compression fracture of L4. Previous kyphoplasty of T12. Rayshawn Barksdale MD A/P Problem List: (1) Pancytopenia Status: Acute Plan: Pt presented with gib, heme positive stool/melena egd negative for significant pathology s/p 2 units blood refusing c-scope. 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 Pt would be a poor coumadin candidate additionally pt undergoing GIB w/u. Neurology recommended against anticoagulation at this time. back on asa now. Pancytopenia developed. stable. seen by oncology spleen u/s ordered no splenomegaly. discussed with dr Gresham..f/u clinic 1 month..if still pancytopenic then consider bm bx. d/c ordered to [facility]/pt 03/30....then pt/family wanted snf and d/c held until snf identified....d/c once snf available. f/u urine cx to exclude uti. (2) GI bleed Status: Acute Plan: see above (3) TIA (transient ischemic attack) Status: Acute Plan: see above (4) Altered mental status, unspecified Status: Acute Plan: - Pt is a 76 y/o with hypertension, hx of CVA, and hypothyroidism who presented to the ED at [facility] on 03/23/17 for evaluation of altered mental status and anemia. - Pt had outpt labs on 03/20/17 which noted a hemoglobin of 5.2. Pt also noted to be in ARF with Cr 3.44. - Outpt records from 08/2016 pt was noted to have Cr. 1.36 and Hgb 14. - In review of the records, the pt was recently admitted to [facility] from to 03/02/17 for AMS, acute renal failure, Coumadin toxicity and anemia. She was reportedly having hematuria at that time which resolved once her INR improved. She was found to have an E. coli UTI which was treated with Rocephin and then oral Cipro. Pt was initiated on FeSO4 for her anemia. It was also noted that the pts mentation improved with correction of her acute renal failure. - On 03/20/17 the patient has been seen by Dr. Diallo and according to the outpt notes the pt had been having intermittent N/V but no reported hematemesis or coffee-ground emesis. Pt was also noted to be Hemoccult positive. She was planned to undergo evaluation with EGD/colonoscopy and was ordered for a blood transfusion. - It appears that she has been taken off the Coumadin as this was not on her admission Med Rec and not listed in outpt medication list in [facility] EHR. - Pt has been transfused with 2 units PRBCs with improvement in H/H - H/H is currently stable. - GI is consulted for evaluation of anemia and GIB. - Pt underwent evaluation with EGD on 03/25/17 which noted gastritis - Pt had been planned for colonoscopy, but then she refused to complete the GoLytely prep. - Pt then had facial droop and was transferred to the ICU for closer observation - Overall, pt's sensorium is much improved from admission. - Head CT w/o contrast (03/24/17) --> Old area of infarct in the watershed distribution between the right frontal and parietal cortex. No acute abnormality seen. (5) Generalized weakness Status: Acute Plan: see above (6) CKD (chronic kidney disease) stage 4, GFR 15-29 ml/min Status: Chronic Problem Qualifiers (1) GI bleed: Qualified Code: K92.2 - Gastrointestinal hemorrhage, unspecified gastrointestinal hemorrhage type Sebastian Mahmood MD Mar 31, 2017 08:35
[2017-03-31] MEDS: DOCUSATE SODIUM 100 MG CAP PO SCH (09:53)
[2017-03-31] MEDS: SODIUM CHLORIDE 0.9% FLUSH 10 ML FLUSH IV FLUSH SCH (09:53)
[2017-03-31] MEDS: ASPIRIN 325 MG TAB PO SCH (09:53)
[2017-03-31] MEDS: SODIUM CHLORIDE 0.9% FLUSH 5 ML FLUSH IV FLUSH SCH (09:53)
[2017-03-31] MEDS: PANTOPRAZOLE SODIUM 40 MG VIAL IV PUSH SCH (09:53)
--- NOTE | 2017-03-31 11:05 | PD.ONC.PN ---
Subjective Subjective Remarks Afebrile overnight. Patient resting in bed in nad. States she is going to nursing facility today. Denies pain. No bleeding. Objective Data Date Time Temp Pulse Resp B/P Pulse Ox O2 Delivery O2 Flow Rate FiO2 03/31/17 09:50 98 Room Air 21 03/31/17 08:00 96.8 91 20 132/72 98 03/31/17 04:00 96.9 95 18 140/63 98 03/31/17 00:00 96.7 96 18 122/74 98 03/30/17 21:00 Room Air 03/30/17 20:07 102 03/30/17 20:00 96.8 102 18 124/74 98 03/30/17 15:50 96.9 118 20 139/78 98 03/30/17 11:50 97.8 113 20 128/78 99 03/31/17 03/31/17 03/31/17 07:00 15:00 23:00 Output Total 100 ml Balance -100 ml Result Diagram: 03/30/17 0710 03/30/17 0710 Laboratory Results Laboratory Tests Test 03/30/17 17:15 Urine Color YELLOW Urine Turbidity HAZY Urine pH 5.5 Urine Specific [place] 1.015 Urine Protein 100 mg/dL Urine Glucose (UA) NEG mg/dL Urine Ketones NEG mg/dL Urine Occult Blood SMALL Urine Nitrite NEG Urine Bilirubin NEG Urine Urobilinogen LESS THAN 2.0 MG/DL Urine Leukocyte Esterase SMALL Urine RBC 2 /hpf Urine WBC 10 /hpf Urine Squamous Epithelial 2 /hpf Cells Urine Transitional Epithelial 2 /hpf Cells Urine Amorphous Sediment RARE Urine Bacteria MOD /hpf Urine Hyaline Casts 1 /lpf Urine Mucus FEW /lpf Microscopic Urinalysis Comment CULTURE INDICATED Culture Results Microbiology Date/Time Procedure Status Source Growth 03/30/17 17:15 Urine Culture Received Urine Random Urine Pending Administered Medications Medications (Trade) Dose Ordered Sig/Balta Route PRN Reason Start Time Stop Time Status Last Admin Dose Admin Sodium Chloride (NS Flush) 2 ml UNSCH PRN IV FLUSH FLUSH AFTER USING IV ACCESS 03/23/17 20:00 03/30/17 21:06 Sodium Chloride (NS Flush) 2 ml BID IV FLUSH 03/23/17 21:00 03/31/17 09:53 Docusate Sodium (Colace) 100 mg BID PO 03/23/17 21:00 03/31/17 09:53 Levothyroxine Sodium (Synthroid) 75 mcg DAILY@06 PO 03/24/17 06:00 03/31/17 05:31 Lorazepam (Ativan) 0.5 mg Q8H PRN PO ANXIETY AND/OR AGITATION 03/23/17 20:00 03/30/17 17:52 Ferrous Sulfate (Ferrous Sulfate) 325 mg BIDAC PO 03/23/17 20:15 03/31/17 05:31 Pantoprazole Sodium (Protonix Inj) 40 mg Q24H IV PUSH 03/24/17 08:00 03/31/17 09:53 IV Flush (NS Flush) 2 ml BID IV FLUSH 03/27/17 21:00 03/29/17 10:04 Aspirin (Aspirin) 325 mg DAILY PO 03/29/17 09:00 03/31/17 09:53 Atorvastatin Calcium 20 mg 20 mg HS PO 03/29/17 21:00 03/30/17 21:04 Ceftriaxone Sodium/Sodium Chloride (Rocephin Inj/NS Inj) 100 ml @ 200 mls/hr Q24H IV 03/31/17 07:00 03/31/17 06:43 Objective Remarks GENERAL: Elderly female, sitting up in bed in [facility]. SKIN: Warm and dry. HEAD: Normocephalic. EYES: No injection or drainage. NECK: Supple, trachea midline. CARDIOVASCULAR: Regular rate and rhythm RESPIRATORY: Breath sounds equal bilaterally. No accessory muscle use. GASTROINTESTINAL: Abdomen mildly distended, soft EXTREMITIES: No cyanosis NEUROLOGICAL: awake and alert, normal speech. moving all extremities. Assessment/Plan Problem List: (1) Pancytopenia Status: Acute Plan: 03/31/17: discussed u/s spleen results. follow up in clinic upon discharge. --differential includes bone marrow suppression from medication or infection versus underlying bone marrow pathology such as myelodysplastic syndrome. --u/s spleen pending. Assessment 76y/o female with pancytopenia. --sent from NURSING HOME due to severe anemia --EGD--WNL h/o Hypertension. Hypercholesterolemia. Hypothyroidism. Chronic kidney disease. Compression fracture of the lumbar spine.History of CVA. Attending Statement Patient denies any new complaints Spleen sonogram came back normal Patient will need bone marrow biopsy as an outpatient Discuss with Dr. Braithwhite Okay to discharge Follow-up As an outpatient The exam, history, and the medical decision-making described in the above note were completed with the assistance of the mid-level provider. I reviewed and agree with the findings presented. I attest that I had a [id number] encounter with the patient on the same day, and personally performed and documented my assessment and findings in the medical record. Monalisa Andrade Mar 31, 2017 11:05 Qamar Gresham MD Apr 01, 2017 01:49
[2017-03-31 12:52] VITALS: BP 115/65; PULSE 92; RESP 20; TEMP 97.8; O2SAT 98
[2017-03-31] MEDS ORDERED: AUGM500T7 PO (14:02)
[2017-03-31 16:45] VITALS: BP 145/73; PULSE 97; RESP 20; TEMP 97.3; O2SAT 98
--- NOTE | 2017-04-03 12:04 | HHI.DS ---
Discharge Summary Admission Date Mar 23, 2017 at 19:50 Discharge Date: Mar 31, 2017 Admitting Diagnosis AMS; GI BLEED; ANEMIA (1) Pancytopenia Diagnosis: Secondary (2) GI bleed Diagnosis: Principal (3) TIA (transient ischemic attack) Diagnosis: Secondary (4) Altered mental status, unspecified Diagnosis: Principal (5) Generalized weakness Diagnosis: Secondary (6) CKD (chronic kidney disease) stage 4, GFR 15-29 ml/min Diagnosis: Secondary Consultants Dr. Nakia Manzano - GI Dr. Raad Figueroa - Neurology Dr. Manpreet Gresham - Oncology Brief History Ms. Ariza is a 76 y/o WF with hypertension, hx of CVA, and hypothyroidism who presented to the ED at [facility] on 03/23/17 from her local [facility], for evaluation of altered mental status and anemia. Pt had outpt labs on 03/20/17 which noted a hemoglobin of 5.2. The pt is unable to provide any meaningful information at the time of examination so the history was taken from the ED notes and outpt records. Per the ED notes, the patient's mentation has been declining over the last 3-4 days per the Center staff. In review of the records , the pt was recently admitted to [facility] from 02/20/17 to 03/02/17 for AMS, acute renal failure, Coumadin toxicity and anemia. She was reportedly having hematuria at that time which resolved once her INR improved. She was found to have an E. coli UTI which was treated with Rocephin and then oral Cipro. Pt was initiated on FeSO4 for her anemia. It was also noted that the pts mentation improved with correction of her acute renal failure. The pt was also reportedly on Hospice for a few days prior to that admission but this was revoked at the time of that admission to . On 03/20/17 the patient has been seen by Dr. Diallo and according to the outpt notes the pt had been having intermittent N/ V but no reported hematemesis or coffee-ground emesis. Pt was also noted to be Hemoccult positive. She was planned to undergo evaluation with EGD/colonoscopy and was ordered for a blood transfusion. Per nursing staff the pt has had smears of black tarry stool in her diapers every time she gets changed but no obvious red blood noted. I do not had a record of her discharge medications from that recent hospitalization but it appears that she has been taken off the Coumadin as this was not on her admission Med Rec and not listed in outpt medication list in [facility] EHR. Pts not clear if the pt has baseline dementia or not based on outpt records. CBC/BMP: 03/30/17 0710 03/30/17 0710 Imaging Last Impressions Spleen Ultrasound 03/30/17 0000 Signed Impressions: Service Date/Time: Thursday, March 30, 2017 13:44 - CONCLUSION: 1. The spleen is normal in size. Osiel Lacy MD Renal Ultrasound 03/29/17 0000 Signed Impressions: Service Date/Time: Wednesday, March 29, 2017 13:11 - CONCLUSION: Small echogenic kidneys with cortical thinning typical of chronic parenchymal disease. No obstructive uropathy or other acute abnormality demonstrated. Rayshawn Barksdale MD Chest X-Ray 03/29/17 0000 Signed Impressions: Service Date/Time: Wednesday, March 29, 2017 14:32 - CONCLUSION: No evidence of acute cardiopulmonary disease. Rayshawn Barksdale MD Carotid Artery Ultrasound 03/27/17 0000 Signed Impressions: Service Date/Time: Monday, March 27, 2017 10:25 - CONCLUSION: 1. Mild calcified plaque in the carotid bulbs bilaterally without hemodynamically significant flow-limiting stenosis. 2. Antegrade vertebral artery flow bilaterally. Humza Cooney MD Head CT 03/26/17 0000 Signed Impressions: Service Date/Time: March 22:15 - CONCLUSION: Stable brain appearance. No acute intracranial findings. Findings were reported to the patient's nurse Anabela upon interpretation. Rayshawn Reardon MD Abdomen X-Ray 03/23/17 1729 Signed Impressions: Service Date/Time: Thursday, March 23, 2017 17:52 - CONCLUSION: 1. Benign-appearing abdomen. 2. Osteopenia of the visualized osseous structures. Age-indeterminate compression fracture of L4. Previous kyphoplasty of T12. Rayshawn Barksdale MD Hospital Course Pt is a 76 y/o with hypertension, hx of CVA, and hypothyroidism who presented to the ED at [facility] on 03/23/17 for evaluation of altered mental status and anemia. Pt had outpt labs on 03/20/17 which noted a hemoglobin of 5.2. Pt also noted to be in ARF with Cr 3.44. Outpt records from 08/2016 pt was noted to have Cr. 1.36 and Hgb 14. On 03/20/17 the patient has been seen by Dr. Diallo and according to the outpt notes the pt had been having intermittent N/V but no reported hematemesis or coffee-ground emesis. Pt was also noted to be Hemoccult positive. She was planned to undergo evaluation with EGD/colonoscopy and was ordered for a blood transfusion. It appears that she has been taken off the Coumadin as this was not on her admission Med Rec and not listed in outpt medication list in [facility] EHR. Pt was transfused with 2 units PRBCs following admission on 03/24 with improvement in H/H. GI was consulted for evaluation of anemia and GIB. Pt underwent evaluation with EGD on 03/25/17 which noted gastritis. Pt had been planned for colonoscopy, but then she refused to complete the GoLytely prep. Pt then had facial droop and was transferred to the ICU for closer observation. Head CT w/o contrast (03/24/17) --> Old area of infarct in the watershed distribution between the right frontal and parietal cortex. No acute abnormality seen. Neurology was consulted. It was felt that the pt likely suffered a TIA. CT brain (03/26/17) --> NO acute findings. Carotid US (03/27/17) -- > NO hemodynamically significant stenosis. 2D echocardiogram with EF 55-60%. LDL 83 (03/28/17) and the pt was started on Lipitor 20mg qPM on 03/29. Pt had been on Coumadin previously, but developed supra-therapeutic INR and hematuria. Pt would be a poor Coumadin candidate additionally pt undergoing GIB w/u. Neurology recommended against anticoagulation at this time. Pt was placed back on ASA. Pt developed pancytopenia during admission. Pt was seen by Oncology. Spleen u/s ordered but no splenomegaly. The case was discussed between Dr. Carrera and Dr Gresham and pt was recommended to followup as an outpt in clinic in 1 month and if pt is still pancytopenic then consider bm bx. Pt had HHC/PT ordered prior to discharge on 03/30, then pt/family wanted SNF and d/c held until SNF identified. Pt had an abnormal UA and culture grew out Enterococcus faecalis and pt was prescribed Augmentin x 3 days at discharge Pt Condition on Discharge: Stable Discharge Disposition: Discharge to SNF Discharge Instructions DIET: Follow Instructions for: Heart Healthy Diet Activities you can perform: Regular-No Restrictions Follow up Referrals: Gastroenterology - 2 Weeks with Tessy Robison MD Oncology - [address] Gresham PCP Follow-up - 1 Week New Medications: Amoxicillin-Clavulanate (Augmentin) 500-125 mg Tab 500 MG PO BID Infection Days 3 Ref 0 TAB Pantoprazole (Protonix) 40 Mg Tab 40 MG PO DAILY gastritis #30 Ref 3 TAB Aspirin (Aspirin) 325 Mg Tab 325 MG PO DAILY tia #0 TAB Atorvastatin (Atorvastatin) 20 Mg Tab 20 MG PO HS tia #30 Ref 3 TAB Continued Medications: Acetaminophen (Mapap) 325 Mg Tab 650 MG PO Q4HR PRN PAIN/FEVER Ref 0 TAB Cholecalciferol (Vitamin D3) 1,000 Unit Tab 1000 UNITS PO DAILY Nutritional Supplement #1 Ref 0 BOTTLE Docusate Sodium (Docusate Sodium) 100 Mg Cap 100 MG PO BID Prevent Constipation #60 Ref [address] (Ferrous Sulfate DR) 325 Mg Tabdr 325 MG PO BID Levothyroxine (Synthroid) 75 Mcg Tab 75 MCG PO DAILY Thyroid #30 Ref 0 TAB Lorazepam (Ativan) 0.5 Mg Tab 0.5 MG PO Q8H PRN ANXIETY AND/OR AGITATION #15 Ref 0 TAB (This prescription has been renewed) Mag Hydrox/Aluminum Hyd/Simeth (Alum-Mag Hydroxide-Simeth Liq) 360 Ml Oral.susp 30 ML PO Q4HR PRN INDIGESTION Magnesium Hydroxide Liq (Milk of Magnesia Liq) 400 Mg/5 Ml Susp 30 ML PO DAILY PRN CONSTIPATION #1 Ref 0 BOTTLE Discontinued Medications: Ranitidine (Ranitidine) 300 Mg Tab 300 MG PO HS Indigestion #30 Ref 0 TAB Lucille Washington Apr 03, 2017 12:04
== END 2017-03-31 20:25 | DRG 378 ==
LOC: NEPE 17:01 → NEDA 19:50 → N07B 21:37 → N07A 03-25 15:25 → N03A 03-26 22:36 → HOCA 03-28 20:33
PROVIDERS: ADMIT Hospitalist; ATTEND Hospitalist
PROC: 30233N1 Transfusion of Nonautologous Red Blood Cells into Peripheral Vein, Percutaneous Approach (ICD-10-PCS; principal; 2017-03-24)
PROC: 0DB68ZX Excision of Stomach, Via Natural or Artificial Opening Endoscopic, Diagnostic (ICD-10-PCS; 2017-03-25)
DX: K92.1 Melena (principal); N17.9 Acute kidney failure, unspecified; D61.818 Other pancytopenia; N18.4 Chronic kidney disease, stage 4 (severe); D53.9 Nutritional anemia, unspecified; D50.0 Iron deficiency anemia secondary to blood loss (chronic); N39.0 Urinary tract infection, site not specified; G45.9 Transient cerebral ischemic attack, unspecified; R41.82 Altered mental status, unspecified; I12.9 Hypertensive chronic kidney disease with stage 1 through stage 4 chronic kidney disease, or unspecified chronic kidney disease; I25.10 Atherosclerotic heart disease of native coronary artery without angina pectoris; E03.9 Hypothyroidism, unspecified; K21.9 Gastro-esophageal reflux disease without esophagitis; E78.5 Hyperlipidemia, unspecified; K29.70 Gastritis, unspecified, without bleeding; K44.9 Diaphragmatic hernia without obstruction or gangrene; R29.810 Facial weakness; R47.81 Slurred speech; R53.81 Other malaise; B95.2 Enterococcus as the cause of diseases classified elsewhere; Z86.73 Personal history of transient ischemic attack (TIA), and cerebral infarction without residual deficits
CPT/HCPCS: 36415; 36430; 70450; 71010; 71020; 74000; 76770; 76775; 80048; 80053; 80061; 81001; 82140; 82435; 82550; 82565; 82607; 82746; 82947; 82948; 83036; 83735; 84132; 84155; 84295; 84439; 84443; 84484; 84520; 85007; 85025; 85027; 85384; 85610; 85730; 86592; 86850; 86900; 86901; 86920; 87077; 87086; 87186; 87641; 88305; 93005; 93306; 93880; 96374; C9113; J0696; J7030; J7120; P9016